=== PATIENT | male | born 1940 | race Caucasian/White ===

== ENCOUNTER 2018-04-21 23:58 | Emergency (ER) | payer OTHER, MEDICARE ==
--- OUTSIDE RECORDS SUMMARY | 2018-04-22 00:03 | XMS REPORT | Clinical Summary ---
:1940 Author Organization [facility] Address [address] [place] [address] Care Team Providers Name Role Phone Marcello Gary MD Primary Care Provider Allergies No Known Allergies Current Medications Prescription Sig. Disp. Refills Start End Date Status Date digOXIN (DIGOX) 125 Take 125 mcg by Active mcg tablet mouth daily. HYDROcodone-acetami Take 1 tablet by Active nophen (NORCO mouth every 6 10-325) 10-325 mg (six) hours as per tablet needed for moderate pain. tamsulosin (FLOMAX) Take 0.4 mg by Active 0.4 mg mouth nightly. capsule,extended release 24hr theophylline Take 100 mg by Active (THEODUR) 100 MG 12 mouth every 12 hr tablet (twelve) hours. tiotropium Place 1 capsule Active (SPIRIVA) 18 mcg into inhaler and per inhalation inhale once capsule daily. aspirin (ECOTRIN) Take 81 mg by Active 81 MG enteric mouth daily. coated tablet colchicine 0.6 mg Take 0.6 mg by Active tablet mouth daily as needed for muscle/joint pain (gout flare). FOLIC Take 1 tablet by Active ACID/MULTIVIT-MIN/L mouth daily. UTEIN (CENTRUM SILVER ORAL) albuterol (PROAIR Inhale 2 puffs Active HFA,PROVENTIL every 6 (six) HFA,VENTOLIN HFA) hours as needed 90 mcg/actuation for wheezing or inhaler shortness of breath. budesonide-formoter Inhale 2 puffs 2 Active ol (SYMBICORT) (two) times a 160-4.5 day. mcg/actuation inhaler ipratropium Take 500 mcg by Active (ATROVENT) 0.02 % nebulization 4 nebulizer solution (four) times a day. albuterol (ACCUNEB) Take 2.5 mg by Active 2.5 mg /3 mL (0.083 nebulization 4 %) nebulizer (four) times a solution day. rivaroxaban Take 20 mg by Active (XARELTO) 20 mg mouth. tablet pantoprazole Take 40 mg by Active (PROTONIX) 40 MG EC mouth 2 (two) tablet times a day. clopidogrel Take 75 mg by 01/14/20 Discontinued (PLAVIX) 75 mg mouth daily. 18 tablet furosemide (LASIX) Take 40 mg by 01/09/20 Discontinued 40 MG tablet mouth daily as 18 needed (for leg swelling). lisinopril Take 2.5 mg by 10/18/19 Discontinued (PRINIVIL,ZESTRIL) mouth 2 (two) 18 2.5 MG tablet times a day. metoprolol tartrate Take 25 mg by 10/15/19 Discontinued (LOPRESSOR) 25 MG mouth 2 (two) 18 tablet times a day. albuterol (ACCUNEB) Take 1 ampule by 11/07/19 Discontinued 1.25 mg/3 mL nebulization 18 nebulizer solution every 6 (six) hours as needed for wheezing or shortness of breath. B-complex with Take 1 tablet by 11/07/19 Discontinued vitamin C tablet mouth daily. 18 spironolactone Take 25 mg by 07/27/20 Discontinued (ALDACTONE) 25 MG mouth daily. 17 tablet arformoterol Take 15 mcg by 01/14/20 Discontinued (BROVANA) 15 mcg/2 nebulization 2 18 mL solution for (two) times a nebulization day. pantoprazole Take 1 tablet (40 06/15/20 Discontinued (PROTONIX) 40 MG EC mg total) by 6 17 tablet mouth every 12 (twelve) hours. sildenafil (VIAGRA) Take 25 mg by 11/07/19 Discontinued 25 MG tablet mouth as needed 18 for erectile dysfunction. ranitidine (ZANTAC) Take 150 mg by 06/15/20 Discontinued 150 MG tablet mouth 2 (two) 17 times a day. pantoprazole Take 1 tablet (40 180 tablet 3 10/13/19 Discontinued (PROTONIX) 40 MG EC mg total) by 7 18 tablet mouth every 12 (twelve) hours. polyethylene glycol Take 17 g by 30 packet 0 08/26/20 (MIRALAX) 17 gram mouth daily for 7 17 packet 30 days. pantoprazole Take 40 mg by 10/15/19 Discontinued (PROTONIX) 40 MG EC mouth every 12 18 tablet (twelve) hours. atorvastatin Take 1 tablet (80 30 tablet 0 11/14/19 (LIPITOR) 80 MG mg total) by 8 18 tablet mouth nightly for 30 days. predniSONE Take 2 tablets 6 tablet 0 10/19/19 (DELTASONE) 20 mg (40 mg total) by 8 18 tablet mouth daily for 3 doses. metoprolol tartrate Take 2 tablets 120 tablet 0 11/14/19 (LOPRESSOR) 25 mg (50 mg total) by 8 18 tablet mouth 2 (two) times a day for 30 days. pantoprazole Take 1 tablet (40 30 tablet 0 11/14/19 (PROTONIX) 40 MG EC mg total) by 8 18 tablet mouth daily for 30 days. azithromycin Take 2 tablets 6 tablet 0 10/19/19 (ZITHROMAX) 250 MG the first day, 8 18 tablet then 1 tablet daily for 4 days. cefpodoxime Take 2 tablets 24 tablet 0 10/24/19 (VANTIN) 200 MG (400 mg total) by 8 18 tablet mouth 2 (two) times a day for 6 days. predniSONE Take 3 tablets 6 tablet 0 10/21/19 (DELTASONE) 10 mg (30 mg total) by 8 18 tablet mouth daily for 2 days. predniSONE Take 2 tablets 6 tablet 0 10/24/19 (DELTASONE) 10 mg (20 mg total) by 8 18 tablet mouth daily for 3 days. predniSONE Take 1 tablet (10 3 tablet 0 10/27/19 (DELTASONE) 10 mg mg total) by 8 18 tablet mouth daily for 3 days. BUDESONIDE/FORMOTER Inhale 2 puffs 11/07/19 Discontinued OL FUMARATE daily. 18 (SYMBICORT INHL) predniSONE Take 10 mg by 11/11/19 Discontinued (DELTASONE) 10 mg mouth daily. 18 tablet nystatin Take 5 mL by 140 mL 0 11/18/19 (MYCOSTATIN) mouth 4 (four) 8 18 100,000 unit/mL times a day for 7 suspension days. Swish in mouth predniSONE Take 40mg QD x 3 30 tablet 0 11/23/19 (DELTASONE) 10 mg days, then 30mg 8 18 tablet QDx3 days, then 20 mg QDx3 days, then 10mg QDx3 days. levoFLOXacin Take 1 tablet 5 tablet 0 11/17/19 (LEVAQUIN) 500 MG (500 mg total) by 8 18 tablet mouth daily for 5 days. guaiFENesin Take 1 tablet 20 tablet 0 01/06/20 Discontinued (MUCINEX) 600 mg (600 mg total) by 8 18 tablet extended mouth 2 (two) release 12hr times a day for 10 days. predniSONE Prednisone 5 tablets for 3 days then 150 tablet 0 08/16 Discontinued (DELTASONE) 10 mg Prednisone 4 tables for 3 days then 8 18 tablet Prednisone 2 tables for 3 days then Prednisone 1 tablet for 3 da levoFLOXacin Take 1 tablet 1 tablet 0 12/18/19 (LEVAQUIN) 500 MG (500 mg total) by 8 18 tablet mouth daily for 1 day. mupirocin Apply topically 3 15 g 0 01/15/20 (BACTROBAN) 2 % (three) times a 8 18 ointment day for 30 days. lidocaine/maalox Take 35 mL by 175 mL 2 02/04/20 (GI COCKTAIL) 35 ml mouth every 6 8 18 suspension (six) hours as suspension needed (odynophagia) for up to 30 days. sucralfate Take 10 mL (1 g 1200 mL 1 01/14/20 Discontinued (CARAFATE) 100 total) by mouth 4 8 18 mg/mL suspension (four) times a day before meals and nightly for 30 days. simethicone Chew 1.5 tablets 180 tablet 0 01/14/20 Discontinued (MYLICON) 80 MG (120 mg total) 4 8 18 chewable tablet (four) times a day for 30 days. nystatin Take 5 mL by 475 mL 0 01/15/20 (MYCOSTATIN) mouth 4 (four) 8 18 100,000 unit/mL times a day for suspension 10 days. Swish in mouth benzonatate Take 1 capsule 60 capsule 0 01/14/20 Discontinued (TESSALON) 100 MG (100 mg total) by 8 18 capsule mouth every 6 (six) hours as needed for cough for up to 30 days. predniSONE 4 tabs po daily 30 tablet 0 01/17/20 (DELTASONE) 10 mg for 3 days, then 8 18 tablet 3 tabs po daily for 3 days, then 2 tabs po daily for 3 days, then 1 tab daily for 3 days, then stop famotidine (PEPCID) Take 1 tablet (40 30 tablet 0 01/14/20 Discontinued 40 MG tablet mg total) by 8 18 mouth nightly for 30 days. alum-mag Take 30 mL by 150 mL 1 01/14/20 Discontinued hydroxide-simeth mouth 4 (four) 8 18 (MAALOX PLUS) times a day as 200-200-20 mg/5 mL needed for suspension indigestion or heartburn for up to 30 days. valACYclovir Take 1 tablet 21 tablet 0 01/12/20 (VALTREX) 1000 MG (1,000 mg total) 8 18 tablet by mouth 3 (three) times a day for 7 days. furosemide (LASIX) Take 1 tablet (40 30 tablet 0 02/08/20 40 mg tablet mg total) by 8 18 mouth daily for 30 days. Active Problems Problem Noted Date Chest pain 01/08/2018 Dysphagia 12/23/2017 Overview: Added automatically from request for surgery [id number] COPD exacerbation 12/10/2017 Pacemaker 10/14/2017 Acute exacerbation of COPD with asthma 10/13/2017 COPD with acute exacerbation 10/13/2017 Generalized abdominal pain 04/21/2016 Acute on chronic diastolic congestive heart failure 04/06/2016 COPD with exacerbation 04/05/2016 COPD (chronic obstructive pulmonary disease) 03/22/2016 Carotid artery disease 03/22/2016 Hypertension 03/22/2016 Gout 03/22/2016 Anemia 03/22/2016 Asbestosis 03/22/2016 Alejo esophagus Diverticulosis Hiatal hernia Gall stone Encounters Date Type Specialty Care Team Description 02/05/20 Documentation Gastroenterology Aviva Patel MA 02/01/20 Office Visit Gastroenterology Patrick, 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); 18 John Dysphagia, unspecified type MD Sabine 02/01/20 Documentation Gastroenterology Aviva Patel MA 01/14/20 Hospital Radiology Patrick, Dysphagia, unspecified type 18 Encounter John Regalado MD 01/14/20 Office Visit Gastroenterology Patrick, Dysphagia, unspecified type 18 John (Primary Dx) MD Sabine 01/14/20 Documentation Gastroenterology Jorge 18 CALROS Dudley 01/08/20 Emergency Cardiology Gokal, Chest pain, unspecified type (Primary Dx); 18 - Hasan Exertional dyspnea 01/09/20 MD Zack 18 Marcelina Gutiérrez MD Bryant, Ronald, MD Neason, Chau L., MD 01/06/20 Patient Outreach Quality Aviva Phillip RN 12/29/19 Anesthesia Event Gastroenterology Aviva Priest MD 12/29/19 Procedure Pass Gastroenterology 18 12/29/19 Surgery Gastroenterology Kanchan, ESOPHAGOGASTRODUODENOSCOPY 18 Oxana Velásquez MD (EGD) 12/24/19 [facility], COPD exacerbation (Primary Dx); 18 - Encounter Medicine Lorenza Chest pain, unspecified type; 01/06/20 MD Yolanda Dyspnea on exertion; 18 Giveon, Dysphagia, unspecified type MD Jennyfer Mayberry Chau L., MD 12/11/19 [facility] Internal [facility], Acute respiratory distress ( Primary Dx); 18 - Encounter Medicine MD Juan COPD exacerbation 12/16/19 Gladys Hemphill MD 11/07/19 [facility], COPD with acute exacerbation ( Primary Dx); 18 - Encounter Medicine MD Kip Hypoxia; 11/11/19 Rigoberto Murphy Peripheral cyanosis Aviva Velásquez MD 10/15/19 Refill Internal Medicine Aviva Burnett MD 10/13/19 [facility], Acute exacerbation of COPD with asthma (Primary Dx); 18 - Encounter Medicine MD Kip COPD with acute exacerbation 10/18/19 Ramandeep, 18 MD Guy Priest Martina C., MD 10/10/19 Emergency Emergency Medicine Shaun Villar Chronic abdominal pain 18 MD Rick (Primary Dx) 10/09/19 Emergency Emergency Medicine Meño, Shortness of breath ( Primary Dx); 18 Aaron Chronic generalized abdominal pain; DO Jonathon Prerenal azotemia 07/27/20 Emergency Emergency Medicine Srinivasa, Chronic abdominal pain ( Primary Dx); 17 Kwabena Martinez DO Intra-abdominal adhesions 06/15/20 Office Visit Gastroenterology Patrick, Hiatal hernia (Primary Dx); 17 John 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; MD Sabine Generalized abdominal pain; Calculus of gallbladder without cholecystitis without obstruction; Diverticulosis of intestine without bleeding, unspecified intestinal tract location after 04/21/2017 Family History Medical History Relation Name Comments Prostate cancer Brother Relation Name Status Comments Brother Alive Father Mother Social History Tobacco Use Types Packs/Day Years Used Date Former Smoker Quit: 10/09/2002 Smokeless Tobacco: Never Used Tobacco Cessation: Counseling Given: No Comments: quit 14 yrs ago Alcohol Use Drinks/Week oz/Week Comments Yes 1-2 Standard drinks or equivalent 0.6 - 1.2 margaritas Sex Assigned at Date Recorded Not on file Last Filed Vital Signs Vital Sign Reading Time Taken Blood Pressure 122/58 01/31/2018 12:44 PM CDT Pulse 98 01/31/2018 12:44 PM CDT Temperature 36.9 C (98.5 F) 01/31/2018 12:44 PM CDT Respiratory Rate 18 01/08/2018 9:10 AM CDT Oxygen Saturation 97% 01/08/2018 9:03 AM CDT Inhaled Oxygen Concentration - - Weight 68.5 kg (151 lb) 01/31/2018 12:44 PM CDT Height 172.7 cm (5' 8") 01/08/2018 2:35 AM CDT Body Mass Index 22.96 01/31/2018 12:44 PM CDT Plan of Treatment Health Maintenance Due Date Last Done Comments SHINGRIX VACCINE (#1) 12/17/1991 ZOSTER VACCINE 2001 PNEUMOCOCCAL POLYSACCHARIDE VACCINE AGE 65 AND OVER 2006 PNEUMOCOCCAL-13 2006 INFLUENZA VACCINE 04/27/2018 Implants Implanted Type Area [employer]stone Fitter Device Expiration Date Model / Identifier Serial / Lot Pacemaker Pacemaker Pacemaker Nish Right Hip Pacemaker Procedures Procedure Name Priority Date/Time Associated Comments Diagnosis FL ESOPHAGRAM COMPLETE Routine 01/13/2018 Dysphagia, Results for 3:47 PM CDT unspecified type this procedure are in the results section. MANUAL DIFFERENTIAL Routine 01/08/2018 Results for 5:05 AM CDT this procedure are in the results section. ESTIMATED GFR Routine 01/08/2018 Results for 5:05 AM CDT this procedure are in the results section. BASIC METABOLIC PANEL Routine 01/08/2018 Results for 5:05 AM CDT this procedure are in the results section. CBC WITH PLATELET AND Routine 01/08/2018 Results for DIFFERENTIAL 5:05 AM CDT this procedure are in the results section. TROPONIN Timed 01/08/2018 Results for 5:05 AM CDT this procedure are in the results section. URINALYSIS SCREEN AND STAT 01/07/2018 Results for MICROSCOPY, WITH REFLEX TO 10:05 PM CDT this procedure CULTURE are in the results section. URINE CULTURE STAT 01/07/2018 Results for 10:04 PM CDT this procedure are in the results section. ECG 12-LEAD STAT 01/07/2018 Results for 9:33 PM CDT this procedure are in the results section. MANUAL DIFFERENTIAL STAT 01/07/2018 Results for 9:24 PM CDT this procedure are in the results section. ESTIMATED GFR STAT 01/07/2018 Results for 9:24 PM CDT this procedure are in the results section. PARTIAL THROMBOPLASTIN TIME STAT 01/07/2018 Results for (PTT) 9:24 PM CDT this procedure are in the results section. PROTHROMBIN TIME WITH INR STAT 01/07/2018 Results for 9:24 PM CDT this procedure are in the results section. B NATRIURETIC PEPTIDE STAT 01/07/2018 Results for 9:24 PM CDT this procedure are in the results section. TROPONIN STAT 01/07/2018 Results for 9:24 PM CDT this procedure are in the results section. COMPREHENSIVE METABOLIC PANEL STAT 01/07/2018 Results for 9:24 PM CDT this procedure are in the results section. CBC WITH PLATELET AND STAT 01/07/2018 Results for DIFFERENTIAL 9:24 PM CDT this procedure are in the results section. XR CHEST 2 VW STAT 01/07/2018 Results for 9:05 PM CDT this procedure are in the results section. THEOPHYLLINE LEVEL Routine 01/04/2018 Results for 3:50 PM CDT this procedure are in the results section. MANUAL DIFFERENTIAL Routine 01/03/2018 Results for 5:00 AM CDT this procedure are in the results section. ESTIMATED GFR Routine 01/03/2018 Results for 5:00 AM CDT this procedure are in the results section. CBC WITH PLATELET AND Routine 01/03/2018 Results for DIFFERENTIAL 5:00 AM CDT this procedure are in the results section. BASIC METABOLIC PANEL Routine 01/03/2018 Results for 5:00 AM CDT this procedure are in the results section. MANUAL DIFFERENTIAL Routine 01/02/2018 Results for 6:48 AM CDT this procedure are in the results section. CBC WITH PLATELET AND Routine 01/02/2018 Results for DIFFERENTIAL 6:48 AM CDT this procedure are in the results section. ESTIMATED GFR Routine 01/02/2018 Results for 4:00 AM CDT this procedure are in the results section. BASIC METABOLIC PANEL Routine 01/02/2018 Results for 4:00 AM CDT this procedure are in the results section. ESTIMATED GFR Routine 01/01/2018 Results for 1:30 AM CDT this procedure are in the results section. BASIC METABOLIC PANEL Routine 01/01/2018 Results for 1:30 AM CDT this procedure are in the results section. MANUAL DIFFERENTIAL Routine 01/01/2018 Results for 1:20 AM CDT this procedure are in the results section. CBC WITH PLATELET AND Routine 01/01/2018 Results for DIFFERENTIAL 1:20 AM CDT this procedure are in the results section. MANUAL DIFFERENTIAL Routine 12/31/2017 Results for 7:08 AM CDT this procedure are in the results section. ESTIMATED GFR Routine 12/31/2017 Results for 7:08 AM CDT this procedure are in the results section. CBC WITH PLATELET AND Routine 12/31/2017 Results for DIFFERENTIAL 7:08 AM CDT this procedure are in the results section. BASIC METABOLIC PANEL Routine 12/31/2017 Results for 7:08 AM CDT this procedure are in the results section. HC COMPLETE BLD COUNT W/AUTO Routine 12/30/2017 Results for DIFF 5:00 AM CDT this procedure are in the results section. ESTIMATED GFR Routine 12/30/2017 Results for 4:00 AM CDT this procedure are in the results section. IGG SUBCLASSES Routine 12/30/2017 Results for 4:00 AM CDT this procedure are in the results section. BASIC METABOLIC PANEL Routine 12/30/2017 Results for 4:00 AM CDT this procedure are in the results section. HC COMPLETE BLD COUNT W/AUTO Routine 12/29/2017 Results for DIFF 4:30 AM CDT this procedure are in the results section. ESTIMATED GFR Routine 12/29/2017 Results for 4:00 AM CDT this procedure are in the results section. HEPARIN PF4 ANTIBODY (IGG) Routine 12/29/2017 Results for 4:00 AM CDT this procedure are in the results section. BASIC METABOLIC PANEL Routine 12/29/2017 Results for 4:00 AM CDT this procedure are in the results section. ESOPHAGOGASTRODUODENOSCOPY (EGD) 12/28/2017 Dysphagia, 3:00 PM CDT unspecified type SURGICAL PATHOLOGY REQUEST Routine 12/28/2017 Results for 9:53 AM CDT this procedure are in the results section. HC COMPLETE BLD COUNT W/AUTO Routine 12/28/2017 Results for DIFF 4:30 AM CDT this procedure are in the results section. ESTIMATED GFR Routine 12/28/2017 Results for 4:00 AM CDT this procedure are in the results section. BASIC METABOLIC PANEL Routine 12/28/2017 Results for 4:00 AM CDT this procedure are in the results section. HC COMPLETE BLD COUNT W/AUTO Routine 12/27/2017 Results for DIFF 6:30 AM CDT this procedure are in the results section. ESTIMATED GFR Routine 12/27/2017 Results for 4:00 AM CDT this procedure are in the results section. BASIC METABOLIC PANEL Routine 12/27/2017 Results for 4:00 AM CDT this procedure are in the results section. HC COMPLETE BLD COUNT W/AUTO Routine 12/26/2017 Results for DIFF 7:50 AM CDT this procedure are in the results section. ESTIMATED GFR Routine 12/26/2017 Results for 4:00 AM CDT this procedure are in the results section. BASIC METABOLIC PANEL Routine 12/26/2017 Results for 4:00 AM CDT this procedure are in the results section. CT SOFT TISSUE NECK WO CONTRAST STAT 12/24/2017 Results for 6:19 AM CDT this procedure are in the results section. CT CHEST WO CONTRAST Routine 12/24/2017 Results for 6:16 AM CDT this procedure are in the results section. MANUAL DIFFERENTIAL Routine 12/24/2017 Results for 5:00 AM CDT this procedure are in the results section. CBC WITH PLATELET AND Routine 12/24/2017 Results for DIFFERENTIAL 5:00 AM CDT this procedure are in the results section. THEOPHYLLINE LEVEL Routine 12/24/2017 Results for 4:00 AM CDT this procedure are in the results section. TROPONIN Routine 12/24/2017 Results for 4:00 AM CDT this procedure are in the results section. ESTIMATED GFR Routine 12/24/2017 Results for 4:00 AM CDT this procedure are in the results section. BASIC METABOLIC PANEL Routine 12/24/2017 Results for 4:00 AM CDT this procedure are in the results section. RESPIRATORY PATHOGEN PANEL Routine 12/24/2017 Results for 12:24 AM CDT this procedure are in the results section. ARTERIAL BLOOD GAS STAT 12/23/2017 Results for 8:11 PM CDT this procedure are in the results section. ECG ED PRELIMINARY Routine 12/23/2017 Results for INTERPRETATION 7:28 PM CDT this procedure are in the results section. MANUAL DIFFERENTIAL STAT 12/23/2017 Results for 6:15 PM CDT this procedure are in the results section. ESTIMATED GFR STAT 12/23/2017 Results for 6:15 PM CDT this procedure are in the results section. B NATRIURETIC PEPTIDE STAT 12/23/2017 Results for 6:15 PM CDT this procedure are in the results section. TROPONIN STAT 12/23/2017 Results for 6:15 PM CDT this procedure are in the results section. COMPREHENSIVE METABOLIC PANEL STAT 12/23/2017 Results for 6:15 PM CDT this procedure are in the results section. CBC WITH PLATELET AND STAT 12/23/2017 Results for DIFFERENTIAL 6:15 PM CDT this procedure are in the results section. XR CHEST 2 VW STAT 12/23/2017 Results for 5:47 PM CDT this procedure are in the results section. ECG 12-LEAD STAT 12/23/2017 Results for 5:36 PM CDT this procedure are in the results section. ESTIMATED GFR Routine 12/13/2017 Results for 4:30 AM CDT this procedure are in the results section. MAGNESIUM LEVEL Routine 12/13/2017 Results for 4:30 AM CDT this procedure are in the results section. BASIC METABOLIC PANEL Routine 12/13/2017 Results for 4:30 AM CDT this procedure are in the results section. LACTIC ACID LEVEL Routine 12/12/2017 Results for 1:43 PM CDT this procedure are in the results section. ESTIMATED GFR Routine 12/12/2017 Results for 4:00 AM CDT this procedure are in the results section. BASIC METABOLIC PANEL Routine 12/12/2017 Results for 4:00 AM CDT this procedure are in the results section. MANUAL DIFFERENTIAL Routine 12/11/2017 Results for 4:55 AM CDT this procedure are in the results section. ESTIMATED GFR Routine 12/11/2017 Results for 4:55 AM CDT this procedure are in the results section. LACTIC ACID LEVEL Routine 12/11/2017 Results for 4:55 AM CDT this procedure are in the results section. BASIC METABOLIC PANEL Routine 12/11/2017 Results for 4:55 AM CDT this procedure are in the results section. CBC WITH PLATELET AND Routine 12/11/2017 Results for DIFFERENTIAL 4:55 AM CDT this procedure are in the results section. TROPONIN Timed 12/11/2017 Results for 4:55 AM CDT this procedure are in the results section. LACTIC ACID LEVEL, SEPSIS - NOW Timed 12/10/2017 Results for AND REPEAT 2X EVERY 3 HOURS 9:28 PM CDT this procedure are in the results section. CT ANGIOGRAM PE CHEST STAT 12/10/2017 Results for 7:31 PM CDT this procedure are in the results section. TROPONIN Timed 12/10/2017 Results for 6:20 PM CDT this procedure are in the results section. LACTIC ACID LEVEL, SEPSIS - NOW Timed 12/10/2017 Results for AND REPEAT 2X EVERY 3 HOURS 6:20 PM CDT this procedure are in the results section. XR CHEST 1 VW PORTABLE STAT 12/10/2017 Results for 4:38 PM CDT this procedure are in the results section. XR ABDOMEN 1 VW STAT 12/10/2017 Results for 4:38 PM CDT this procedure are in the results section. RESPIRATORY PATHOGEN PANEL Routine 12/10/2017 Results for 3:55 PM CDT this procedure are in the results section. MANUAL DIFFERENTIAL STAT 12/10/2017 Results for 3:40 PM CDT this procedure are in the results section. ESTIMATED GFR STAT 12/10/2017 Results for 3:40 PM CDT this procedure are in the results section. PARTIAL THROMBOPLASTIN TIME STAT 12/10/2017 Results for (PTT) 3:40 PM CDT this procedure are in the results section. PROTHROMBIN TIME WITH INR STAT 12/10/2017 Results for 3:40 PM CDT this procedure are in the results section. B NATRIURETIC PEPTIDE STAT 12/10/2017 Results for 3:40 PM CDT this procedure are in the results section. TROPONIN STAT 12/10/2017 Results for 3:40 PM CDT this procedure are in the results section. LACTIC ACID LEVEL, SEPSIS - NOW STAT 12/10/2017 Results for AND REPEAT 2X EVERY 3 HOURS 3:40 PM CDT this procedure are in the results section. COMPREHENSIVE METABOLIC PANEL STAT 12/10/2017 Results for 3:40 PM CDT this procedure are in the results section. CBC WITH PLATELET AND STAT 12/10/2017 Results for DIFFERENTIAL 3:40 PM CDT this procedure are in the results section. BLOOD CULTURE, AEROBIC & Routine 12/10/2017 Results for ANAEROBIC 3:40 PM CDT this procedure are in the results section. BLOOD CULTURE, AEROBIC & Routine 12/10/2017 Results for ANAEROBIC 3:35 PM CDT this procedure are in the results section. ECG 12-LEAD STAT 12/10/2017 Results for 3:16 PM CDT this procedure are in the results section. POC GLUCOSE Routine 11/09/2017 Results for 8:28 AM [employer]ING [employer]ANT this procedure are in the results section. ECG 12-LEAD STAT 11/08/2017 Results for 10:32 AM [employer]ANT this procedure are in the results section. CT ANGIOGRAM PE CHEST STAT 11/07/2017 Results for 10:29 PM [employer]ANT this procedure are in the results section. ARTERIAL BLOOD GAS STAT 11/07/2017 Results for 7:20 PM [employer] this procedure are in the results section. ECG ED PRELIMINARY Routine 11/07/2017 Results for INTERPRETATION 6:00 PM [employer] this procedure are in the results section. IN CRITICAL CARE, E/M 30-74 Routine 11/07/2017 Results for MINUTES 6:00 PM [employer] this procedure are in the results section. ESTIMATED GFR Routine 11/07/2017 Results for 4:25 PM [employer] this procedure are in the results section. B NATRIURETIC PEPTIDE Routine 11/07/2017 Results for 4:25 PM [employer] this procedure are in the results section. COMPREHENSIVE METABOLIC PANEL Routine 11/07/2017 Results for 4:25 PM [employer] this procedure are in the results section. HC COMPLETE BLD COUNT W/AUTO Routine 11/07/2017 Results for DIFF 4:25 PM [employer] this procedure are in the results section. BLOOD CULTURE, AEROBIC & Routine 11/07/2017 Results for ANAEROBIC 4:25 PM [employer] this procedure are in the results section. BLOOD CULTURE, AEROBIC & Routine 11/07/2017 Results for ANAEROBIC 4:25 PM [employer] this procedure are in the results section. XR CHEST 2 VW STAT 11/07/2017 Results for 3:16 PM [employer] this procedure are in the results section. ECG 12-LEAD STAT 11/07/2017 Results for 3:12 PM [employer] this procedure are in the results section. MANUAL DIFFERENTIAL Routine 10/18/2017 Results for 5:00 AM [employer] this procedure are in the results section. CBC WITH PLATELET AND Routine 10/18/2017 Results for DIFFERENTIAL 5:00 AM [employer] this procedure are in the results section. ESTIMATED GFR Routine 10/18/2017 Results for 4:00 AM [employer] this procedure are in the results section. BASIC METABOLIC PANEL Routine 10/18/2017 Results for 4:00 AM [employer] this procedure are in the results section. ESTIMATED GFR Routine 10/17/2017 Results for 5:17 AM [employer] this procedure are in the results section. HC COMPLETE BLD COUNT W/AUTO Routine 10/17/2017 Results for DIFF 5:17 AM [employer] this procedure are in the results section. BASIC METABOLIC PANEL Routine 10/17/2017 Results for 5:17 AM [employer] this procedure are in the results section. ESTIMATED GFR Routine 10/16/2017 Results for 5:00 AM [employer] this procedure are in the results section. BASIC METABOLIC PANEL Routine 10/16/2017 Results for 5:00 AM [employer] this procedure are in the results section. HC COMPLETE BLD COUNT W/AUTO Routine 10/16/2017 Results for DIFF 5:00 AM [employer] this procedure are in the results section. IN CRITICAL CARE, E/M 30-74 Routine 10/15/2017 Results for MINUTES 12:01 PM [employer] this procedure are in the results section. ESTIMATED GFR Routine 10/15/2017 Results for 4:50 AM [employer] this procedure are in the results section. BASIC METABOLIC PANEL Routine 10/15/2017 Results for 4:50 AM [employer] this procedure are in the results section. HC COMPLETE BLD COUNT W/AUTO Routine 10/15/2017 Results for DIFF 4:50 AM [employer] this procedure are in the results section. XR CHEST 2 VW Routine 10/14/2017 Results for 5:15 PM [employer] this procedure are in the results section. ESTIMATED GFR Timed 10/14/2017 Results for 4:00 PM [employer] this procedure are in the results section. BASIC METABOLIC PANEL Timed 10/14/2017 Results for 4:00 PM [employer] this procedure are in the results section. ECG 12-LEAD STAT 10/14/2017 Results for 10:37 AM [employer] this procedure are in the results section. POC GLUCOSE Routine 10/14/2017 Results for 9:39 AM [employer] this procedure are in the results section. ECHOCARDIOGRAM 2D COMPLETE W Routine 10/14/2017 Results for MMODE SPECTRAL COLOR DOPPLER 9:12 AM [employer] this procedure ([id number]) are in the results section. HEMOGLOBIN A1C Routine 10/14/2017 Results for 5:00 AM [employer] this procedure are in the results section. ESTIMATED GFR Routine 10/14/2017 Results for 5:00 AM [employer] this procedure are in the results section. T4, FREE Routine 10/14/2017 Results for 5:00 AM [employer] this procedure are in the results section. THYROID STIMULATING HORMONE Routine 10/14/2017 Results for 5:00 AM [employer] this procedure are in the results section. LIPID PANEL Routine 10/14/2017 Results for 5:00 AM [employer] this procedure are in the results section. PHOSPHORUS LEVEL Routine 10/14/2017 Results for 5:00 AM [employer] this procedure are in the results section. MAGNESIUM LEVEL Routine 10/14/2017 Results for 5:00 AM [employer] this procedure are in the results section. HEPATIC FUNCTION PANEL Routine 10/14/2017 Results for 5:00 AM [employer] this procedure are in the results section. CREATINE KINASE, TOTAL (CPK) Routine 10/14/2017 Results for 5:00 AM [employer] this procedure are in the results section. BASIC METABOLIC PANEL Routine 10/14/2017 Results for 5:00 AM [employer] this procedure are in the results section. HC COMPLETE BLD COUNT W/AUTO Routine 10/14/2017 Results for DIFF 5:00 AM [employer] this procedure are in the results section. RESPIRATORY PATHOGEN PANEL Routine 10/14/2017 Results for 12:00 AM [employer] this procedure are in the results section. XR ABDOMEN 1 VW PORTABLE Routine 10/13/2017 Results for 8:31 PM [employer] this procedure are in the results section. DIGOXIN LEVEL Timed 10/13/2017 Results for 8:23 PM [employer] this procedure are in the results section. TROPONIN Timed 10/13/2017 Results for 8:23 PM [employer] this procedure are in the results section. RESPIRATORY PATHOGEN PANEL Routine 10/13/2017 Results for 7:20 PM [employer] this procedure are in the results section. ARTERIAL BLOOD GAS Routine 10/13/2017 Results for 6:40 PM [employer] this procedure are in the results section. XR CHEST 1 VW PORTABLE STAT 10/13/2017 Results for 6:01 PM [employer] this procedure are in the results section. ECG 12-LEAD STAT 10/13/2017 Results for 4:55 PM [employer] this procedure are in the results section. BLOOD CULTURE, AEROBIC & Routine 10/13/2017 Results for ANAEROBIC 4:50 PM [employer] this procedure are in the results section. ESTIMATED GFR STAT 10/13/2017 Results for 4:45 PM [employer] this procedure are in the results section. B NATRIURETIC PEPTIDE STAT 10/13/2017 Results for 4:45 PM [employer] this procedure are in the results section. TROPONIN STAT 10/13/2017 Results for 4:45 PM [employer] this procedure are in the results section. COMPREHENSIVE METABOLIC PANEL STAT 10/13/2017 Results for 4:45 PM [employer] this procedure are in the results section. HC COMPLETE BLD COUNT W/AUTO STAT 10/13/2017 Results for DIFF 4:45 PM [employer] this procedure are in the results section. CT ABDOMEN PELVIS WO CONTRAST STAT 10/10/2017 Results for 5:22 PM [employer] this procedure are in the results section. INFLUENZA ANTIGEN Routine 10/10/2017 Results for 3:48 PM [employer] this procedure are in the results section. MANUAL DIFFERENTIAL STAT 10/10/2017 Results for 3:44 PM [employer] this procedure are in the results section. ESTIMATED GFR STAT 10/10/2017 Results for 3:44 PM [employer] this procedure are in the results section. COMPREHENSIVE METABOLIC PANEL STAT 10/10/2017 Results for 3:44 PM [employer] this procedure are in the results section. CBC WITH PLATELET AND STAT 10/10/2017 DIFFERENTIAL 3:44 PM [employer] ECG ED PRELIMINARY Routine 10/09/2017 Results for INTERPRETATION 10:56 PM [employer] this procedure are in the results section. ECG 12-LEAD STAT 10/09/2017 Results for 9:39 PM [employer] this procedure are in the results section. MANUAL DIFFERENTIAL STAT 10/09/2017 Results for 9:26 PM [employer] this procedure are in the results section. ESTIMATED GFR STAT 10/09/2017 Results for 9:26 PM [employer] this procedure are in the results section. PROTHROMBIN TIME WITH INR, STAT 10/09/2017 Results for I-STAT 9:26 PM [employer] this procedure are in the results section. CBC WITH PLATELET AND STAT 10/09/2017 Results for DIFFERENTIAL 9:26 PM [employer] this procedure are in the results section. B NATRIURETIC PEP, I-STAT STAT 10/09/2017 Results for 9:26 PM [employer] this procedure are in the results section. TROPONIN, I-STAT STAT 10/09/2017 Results for 9:26 PM [employer] this procedure are in the results section. CREATINE KINASE, TOTAL (CPK) STAT 10/09/2017 Results for 9:26 PM [employer] this procedure are in the results section. LACTIC ACID, I-STAT STAT 10/09/2017 Results for 9:26 PM [employer] this procedure are in the results section. COMPREHENSIVE METABOLIC PANEL STAT 10/09/2017 Results for 9:26 PM [employer] this procedure are in the results section. XR CHEST 1 VW PORTABLE STAT 10/09/2017 Results for 9:18 PM [employer] this procedure are in the results section. CT ABDOMEN PELVIS WO CONTRAST STAT 07/27/2017 Results for 9:39 PM CDT this procedure are in the results section. after 04/21/2017 Results [place] Esophagram Complete (01/13/2018 3:47 PM) Narrative Performed At EXAMINATION:[place] ESOPHAGRAM COMPLETE [facility] CLINICAL HISTORY:R13.10 Dysphagiaunspecified, CHOKING SENSATION, DIFFICULTY SWALLOWING COMPARISON:None. TECHNIQUE:Esophagram was performed with effervescent granules and barium. FLUOROSCOPIC TIME:1.8 minutes IMAGES:31 FINDINGS: 1.Swallow:Swallowing mechanism was normal. Esophagus was distensible. The mucosa and motility were within normal limits. 2.Gastroesophageal junction:No evidence of hiatal hernia. No reflux. 3.Visualized portions of the stomach and proximal small bowel unremarkable. IMPRESSION: 1.Unremarkable esophagram. [facility]-[id number] Procedure Note Interface, Radiology Results Incoming - 01/13/2018 3:55 PM CDT EXAMINATION: [place] ESOPHAGRAM COMPLETE CLINICAL HISTORY: R13.10 Dysphagia unspecified, CHOKING SENSATION, DIFFICULTY SWALLOWING COMPARISON: None. TECHNIQUE: Esophagram was performed with effervescent granules and barium. FLUOROSCOPIC TIME: 1.8 minutes IMAGES: 31 FINDINGS: 1. Swallow: Swallowing mechanism was normal. Esophagus was distensible. The mucosa and motility were within normal limits. 2. Gastroesophageal junction: No evidence of hiatal hernia. No reflux. 3. Visualized portions of the stomach and proximal small bowel unremarkable. IMPRESSION: 1. Unremarkable esophagram. [id number] Performing Organization Address City/State/Zipcode Phone Number [facility] [address] [place] [phone] Estimated GFR (01/08/2018 5:05 AM)Only the most recent of27 resultswithin the time period is included. GFR Non Af Amer 73 mL/min/1.73 m2 [facility] DEPARTMENT OF PATHOLOGY AND GENOMIC MEDICINE GFR Af Amer 88 mL/min/1.73 m2 [facility] DEPARTMENT OF Comment: PATHOLOGY AND GENOMIC Chronic kidney disease: <60 mL/min/1.73m2 MEDICINE Kidney failure: <15 mL/min/1.73m2 The estimated GFR is calculated from the IDMS-traceable Modification of Diet in Renal Disease Equation. The accuracy of the calculation is poor when the creatinine is normal. Calculated values >90 mL/min/1.73m2 are not reported. This equation has not been validated in children (<18 years), women, the elderly (>70 years), or ethnic groups other than Caucasians and Americans. Specimen Plasma specimen Performing Organization Address City/[facility] Phone Number [facility] OF PATHOLOGY AND [address] [place] [address] MEDICINE Troponin (01/08/2018 5:05 AM)Only the most recent of9 resultswithin the time period is included. Troponin <0.30 0.00 - 0.30 ng/mL [facility] DEPARTMENT OF PATHOLOGY Comment: AND GENOMIC MEDICINE 0.30 - 1.49 ng/mlMay indicate increased risk of acute coronary syndrome. >=1.5 ng/mlConsistent with acute myocardial infarction. The diagnostic value of a single normal or non-diagnostic result is questionable.Serial samples at 2-6 hour intervals are required to rule out acute myocardial injury. Specimen Plasma specimen Performing Organization Address City/[facility]code Phone Number [facility] DEPARTMENT OF PATHOLOGY AND [address] [place] [phone] GENOMIC MEDICINE Manual differential (01/08/2018 5:05 AM)Only the most recent of13 resultswithin the time period is included. Manual differential PERFORMED [facility] DEPARTMENT OF PATHOLOGY AND GENOMIC MEDICINE Neutrophils 84.0 (H) 39.0 - 69.0 % [facility] DEPARTMENT OF PATHOLOGY AND GENOMIC MEDICINE Lymphocytes 9.0 (L) 25.0 - 45.0 % [facility] DEPARTMENT OF PATHOLOGY AND GENOMIC MEDICINE Monocytes 3.0 0.0 - 10.0 % [facility] DEPARTMENT OF PATHOLOGY AND GENOMIC MEDICINE Eosinophils 0.0 0.0 - 5.0 % [facility] DEPARTMENT OF PATHOLOGY AND GENOMIC MEDICINE Basophils 0.0 0.0 - 1.0 % [facility] DEPARTMENT OF PATHOLOGY AND GENOMIC MEDICINE Metamyelocytes 1 % [facility] DEPARTMENT OF PATHOLOGY AND GENOMIC MEDICINE Myelocytes 3 % [facility] DEPARTMENT OF PATHOLOGY AND GENOMIC MEDICINE Promyelocytes 0 % [facility] DEPARTMENT OF PATHOLOGY AND GENOMIC MEDICINE Platelet slide review Decreased (A) [facility] DEPARTMENT OF PATHOLOGY AND GENOMIC MEDICINE Anisocytosis Moderate [facility] DEPARTMENT OF PATHOLOGY AND GENOMIC MEDICINE Performing Organization Address City/State/Zipcode Phone Number [facility] DEPARTMENT OF PATHOLOGY AND [address] [place] [phone] GENOMIC [place] CBC with platelet and differential (01/08/2018 5:05 AM)Only the most recent of23 resultswithin the time period is included. WBC 9.20 4.50 - 11.00 k/uL [facility] DEPARTMENT OF PATHOLOGY AND GENOMIC MEDICINE RBC 3.66 (L) 4.40 - 6.00 m/uL [facility] DEPARTMENT OF PATHOLOGY AND GENOMIC MEDICINE HGB 10.7 (L) 14.0 - 18.0 g/dL [facility] DEPARTMENT OF PATHOLOGY AND GENOMIC MEDICINE HCT 34.1 (L) 41.0 - 51.0 % [facility] DEPARTMENT OF PATHOLOGY AND GENOMIC MEDICINE MCV 93.2 82.0 - 100.0 fL [facility] DEPARTMENT OF PATHOLOGY AND GENOMIC MEDICINE MCH 29.2 27.0 - 34.0 pg [facility] DEPARTMENT OF PATHOLOGY AND GENOMIC MEDICINE MCHC 31.4 31.0 - 37.0 g/dL [facility] DEPARTMENT OF PATHOLOGY AND GENOMIC MEDICINE RDW - SD 53.1 37.0 - 55.0 fL [facility] DEPARTMENT OF PATHOLOGY AND GENOMIC MEDICINE MPV 10.6 8.8 - 13.2 fL [facility] DEPARTMENT OF PATHOLOGY AND GENOMIC MEDICINE Platelet count 111 (L) 150 - 400 k/uL [facility] DEPARTMENT OF PATHOLOGY AND GENOMIC MEDICINE Nucleated RBC 0.20 /100 WBC [facility] DEPARTMENT OF PATHOLOGY AND GENOMIC MEDICINE Neutrophils 84.0 (H) 39.0 - 69.0 % [facility] DEPARTMENT OF PATHOLOGY AND GENOMIC MEDICINE Lymphocytes 9.0 (L) 25.0 - 45.0 % [facility] DEPARTMENT OF PATHOLOGY AND GENOMIC MEDICINE Monocytes 3.0 0.0 - 10.0 % [facility] DEPARTMENT OF PATHOLOGY AND GENOMIC MEDICINE Eosinophils 0.0 0.0 - 5.0 % [facility] DEPARTMENT OF PATHOLOGY AND GENOMIC MEDICINE Basophils 0.0 0.0 - 1.0 % [facility] DEPARTMENT OF PATHOLOGY AND GENOMIC MEDICINE Specimen Blood Performing Organization Address City/[facility]/Zipcode Phone Number [facility] PATHOLOGY AND [address] [place] [address] [facility] Basic metabolic panel (01/08/2018 5:05 AM)Only the most recent of20 resultswithin the time period is included. Sodium 138 135 - 148 mEq/L [facility] DEPARTMENT OF PATHOLOGY AND GENOMIC MEDICINE Potassium 3.3 (L) 3.5 - 5.0 mEq/L [facility] DEPARTMENT OF PATHOLOGY AND GENOMIC MEDICINE Chloride 91 (L) 98 - 112 mEq/L [facility] DEPARTMENT OF PATHOLOGY AND GENOMIC MEDICINE CO2 34 (H) 24 - 31 mEq/L [facility] DEPARTMENT OF PATHOLOGY AND GENOMIC MEDICINE Anion gap 13 7 - 15 mEq/L [facility] DEPARTMENT OF PATHOLOGY Comment: AND [facility] Starting from December , anion gap calculation no longer incorporates potassium. Please note the change. BUN 25 (H) 8 - 23 mg/dL [facility] DEPARTMENT OF PATHOLOGY AND GENOMIC MEDICINE Creatinine 1.0 0.7 - 1.2 mg/dL [facility] DEPARTMENT OF PATHOLOGY AND GENOMIC MEDICINE Glucose 100 (H) 65 - 99 mg/dL [facility] DEPARTMENT OF PATHOLOGY AND GENOMIC MEDICINE Calcium 8.5 (L) 8.8 - 10.2 mg/dL [facility] DEPARTMENT OF PATHOLOGY AND GENOMIC MEDICINE Specimen Plasma specimen Performing Organization Address City/[facility]code Phone Number [facility] PATHOLOGY AND [address] [place] [address] [facility] Urinalysis screen and microscopy, with reflex to culture (01/07/2018 10:05 PM) Specimen site Clean catch [facility] DEPARTMENT OF PATHOLOGY AND GENOMIC MEDICINE Color, UA Awilda [facility] DEPARTMENT OF PATHOLOGY AND GENOMIC MEDICINE Appearance, UA Clear [facility] DEPARTMENT OF PATHOLOGY AND GENOMIC MEDICINE Specific gravity, UA 1.024 1.001 - 1.035 [facility] DEPARTMENT OF PATHOLOGY AND GENOMIC MEDICINE pH, UA 5.0 5.0 - 8.5 [facility] DEPARTMENT OF PATHOLOGY AND GENOMIC MEDICINE Protein, UA 2+ (A) Negative [facility] DEPARTMENT OF PATHOLOGY AND GENOMIC MEDICINE Glucose, UA Negative Negative [facility] DEPARTMENT OF PATHOLOGY AND GENOMIC MEDICINE Ketones, UA Negative Negative [facility] DEPARTMENT OF PATHOLOGY AND GENOMIC MEDICINE Bilirubin, UA Negative Negative [facility] DEPARTMENT OF PATHOLOGY AND GENOMIC MEDICINE Blood, UA Negative Negative [facility] DEPARTMENT OF PATHOLOGY AND GENOMIC MEDICINE Nitrite, UA Negative Negative [facility] DEPARTMENT OF PATHOLOGY AND GENOMIC MEDICINE Urobilinogen, UA <2.0 <2.0 [facility] DEPARTMENT OF PATHOLOGY AND GENOMIC MEDICINE Leukocyte esterase, UA Negative Negative [facility] DEPARTMENT OF PATHOLOGY AND GENOMIC MEDICINE WBC, UA 1 0 - 1 /HPF [facility] DEPARTMENT OF PATHOLOGY AND GENOMIC MEDICINE RBC, UA 3 0 - 5 /HPF [facility] DEPARTMENT OF PATHOLOGY AND GENOMIC MEDICINE Bacteria, UA Few None seen [facility] DEPARTMENT OF PATHOLOGY AND GENOMIC MEDICINE Yeast, UA None seen [facility] DEPARTMENT OF PATHOLOGY AND GENOMIC MEDICINE Yeast with pseudohyphae, UA None seen [facility] DEPARTMENT OF PATHOLOGY AND GENOMIC MEDICINE Sperm, UA Few (A) [facility] DEPARTMENT OF PATHOLOGY AND GENOMIC MEDICINE Hyaline casts, UA 7 /LPF [facility] DEPARTMENT OF PATHOLOGY AND GENOMIC MEDICINE Specimen Urine Performing Organization Address City/[facility]code Phone Number [facility] DEPARTMENT OF PATHOLOGY AND [address] [place] [phone] [facility] Urine culture (01/07/2018 10:04 PM) Urine culture SEE COMMENTComment: Bacteriuria [facility] DEPARTMENT OF PATHOLOGY screen negative. AND GENOMIC MEDICINE Performing Organization Address City/[facility]code Phone Number [facility] DEPARTMENT OF PATHOLOGY AND [address] [place] [phone] [facility] ECG 12 lead (01/07/2018 9:33 PM)Only the most recent of8 resultswithin the time period is included. Ventricular rate 105 [facility] Atrial rate 105 [facility] IN interval 204 [facility] QRSD interval 160 [facility] QT interval 370 [facility] QTC interval 489 [facility] P axis 1 17 [facility] QRS axis 1 -45 [facility] T wave axis 108 [facility] EKG impression Electronic ventricular pacemaker-No previous [facility] MUSE ECGs available- Performing Organization Address [facility] Hospitalcosc Phone Number [facility] MUSE [address] [place] [phone] Partial thromboplastin time, activated (01/07/2018 9:24 PM)Only the most recent of2 resultswithin the time period is included. PTT 29.2 23.0 - 36.0 sec [facility] DEPARTMENT OF PATHOLOGY Comment: [facility] PTT therapeutic range for unfractionated heparin is 61.0-112.0 seconds which corresponds to Anti-Xa 0.3-0.7 U/ml. Specimen Blood Performing Organization Address City/State/Zipcode Phone Number [facility] DEPARTMENT OF PATHOLOGY AND [address] [place] [address] Prothrombin time with INR (01/07/2018 9:24 PM)Only the most recent of2 resultswithin the time period is included. Prothrombin time 13.9 12.0 - 15.0 sec [facility] DEPARTMENT OF PATHOLOGY AND [employer] MEDICINE INR 1.1 [facility] DEPARTMENT OF Comment: PATHOLOGY AND [employer] The International Normalized Ratio (INR) is a therapeutic MEDICINE monitoring tool for patients who are stable on oral anticoagulant therapy. An INR of 2.0-3.0 is suggested for deep vein thrombosis/pulmonary embolism. Specimen Blood Performing Organization Address City/[facility]code Phone Number [facility] DEPARTMENT OF PATHOLOGY AND [address] [place] [address] B natriuretic peptide (01/07/2018 9:24 PM)Only the most recent of5 resultswithin the time period is included. BNP 151 (H) 0 - 100 pg/mL [facility] DEPARTMENT OF PATHOLOGY AND [employer] [place] Specimen Blood Performing Organization Address City/[facility]code Phone Number [facility] DEPARTMENT OF PATHOLOGY AND [address] [place] [address] Comprehensive metabolic panel (01/07/2018 9:24 PM)Only the most recent of7 resultswithin the time period is included. Sodium 139 135 - 148 mEq/L [facility] DEPARTMENT OF PATHOLOGY AND [employer] MEDICINE Potassium 3.7 3.5 - 5.0 mEq/L [facility] DEPARTMENT OF PATHOLOGY AND GENOMIC MEDICINE Chloride 92 (L) 98 - 112 mEq/L [facility] DEPARTMENT OF PATHOLOGY AND GENOMIC MEDICINE CO2 37 (H) 24 - 31 mEq/L [facility] DEPARTMENT OF PATHOLOGY AND GENOMIC MEDICINE Anion gap 10 7 - 15 mEq/L [facility] DEPARTMENT OF Comment: PATHOLOGY AND GENOMIC Starting from December , anion gap calculation MEDICINE no longer incorporates potassium. Please note the change. BUN 26 (H) 8 - 23 mg/dL [facility] DEPARTMENT OF PATHOLOGY AND GENOMIC MEDICINE Creatinine 1.1 0.7 - 1.2 mg/dL [facility] DEPARTMENT OF PATHOLOGY AND GENOMIC MEDICINE Glucose 117 (H) 65 - 99 mg/dL [facility] DEPARTMENT OF PATHOLOGY AND GENOMIC MEDICINE Calcium 8.8 8.8 - 10.2 mg/dL [facility] DEPARTMENT OF PATHOLOGY AND GENOMIC MEDICINE Protein 5.9 (L) 6.3 - 8.3 g/dL [facility] DEPARTMENT OF Comment: PATHOLOGY AND GENOMIC 4.6-7.0 g/dL MEDICINE 1 week 4.4-7.6 g/dL 7 months-1year5.1-7.3 g/dL 1-2 years5.6-7.5 g/dL >3 years6.0-8.0 g/dL 18-150 6.3-8.3 g/dL Albumin 2.3 (L) 3.5 - 5.0 g/dL [facility] DEPARTMENT OF PATHOLOGY AND GENOMIC MEDICINE A/G ratio 0.6 (L) 0.7 - 3.8 [facility] DEPARTMENT OF PATHOLOGY AND GENOMIC MEDICINE Alkaline phosphatase 58 40 - 129 U/L [facility] DEPARTMENT OF PATHOLOGY AND GENOMIC MEDICINE AST 21 10 - 50 U/L [facility] DEPARTMENT OF PATHOLOGY AND GENOMIC MEDICINE ALT 24 5 - 50 U/L [facility] DEPARTMENT OF PATHOLOGY AND GENOMIC MEDICINE Total bilirubin 0.6 0.0 - 1.2 mg/dL [facility] DEPARTMENT OF PATHOLOGY AND GENOMIC MEDICINE Specimen Plasma specimen Performing Organization Address City/State/Zipcode Phone Number [facility] DEPARTMENT OF PATHOLOGY AND [address] [place] [address] [facility] MEDICINE XR Chest 2 Vw (01/07/2018 9:05 PM)Only the most recent of4 resultswithin the time period is included. Narrative Performed At EXAMINATION: XR CHEST 2 VW RADIANT CLINICAL HISTORY: dyspnealower extremity swelling COMPARISON:12/23/2017 chest x-ray. IMPRESSION: Scattered pulmonary infiltrates similar to the prior study. This could represent scar. No pleural effusion or pneumothorax. Calcific pleural plaques similar to the prior study. Cardiac silhouette normal. Right chest cardiac device. No acute osseous abnormalities. [facility]-[id number] Procedure Note Hm Interface, Radiology Results Incoming - 01/07/2018 9:15 PM CDT EXAMINATION: XR CHEST 2 VW CLINICAL HISTORY: dyspnea lower extremity swelling COMPARISON: 12/23/2017 chest x-ray. IMPRESSION: Scattered pulmonary infiltrates similar to the prior study. This could represent scar. No pleural effusion or pneumothorax. Calcific pleural plaques similar to the prior study. Cardiac silhouette normal. Right chest cardiac device. No acute osseous abnormalities. [facility]-[id number] Performing Organization Address City/[facility] Phone Number [facility] [address] [place] [address] Theophylline level (01/04/2018 3:50 PM)Only the most recent of2 resultswithin the time period is included. Theophylline 3.91 (L) 10.00 - 20.00 ug/mL [facility] DEPARTMENT OF PATHOLOGY AND Comment: GENOMIC MEDICINE Therapeutic Range: 10 - 20 ug/mL Specimen Plasma specimen Performing Organization Address [facility] Phone Number [facility] DEPARTMENT OF PATHOLOGY AND [address] [place] [address] GENOMIC MEDICINE IgG subclasses (12/30/2017 4:00 AM) Immunoglobulin G subclass 295 240 - 1,118 mg/dL [facility] 1 Comment: REFERENCE INTERVAL: Immunoglobulin G Subclass 1 Access complete set of age- and/or gender-specific reference intervals for this test in the [facility] ([facility]). Immunoglobulin G subclass 69 (L) 124 - 549 mg/dL [facility] 2 Comment: REFERENCE INTERVAL: Immunoglobulin G Subclass 2 Access complete set of age- and/or gender-specific reference intervals for this test in the [facility] ([employer]). Immunoglobulin G subclass 36 21 - 134 mg/dL [facility] 3 Comment: REFERENCE INTERVAL: Immunoglobulin G Subclass 3 Access complete set of age- and/or gender-specific reference intervals for this test in the [facility] ([employer]). Immunoglobulin G subclass 12 1 - 123 mg/dL [facility] 4 Comment: The total IgG (mg/dL) can be derived by the sum of the subclasses IgG1, IgG2, IgG3 and IgG4 values. However, a confirmatory and more precise total IgG is available by the nephelometric method of total IgG (Test # [id number]). REFERENCE INTERVAL: Immunoglobulin G Subclass 4 Access complete set of age- and/or gender-specific reference intervals for this test in the [facility] ([facility]). Performed by [facility], [address] [place] [id number] [email or web address], Samson Estrada MD - Lab. Director Specimen Serum Performing Organization Address [facility]/Zipcode Phone Number [facility] [address] [place] [address] Heparin PF4 antibody (IgG) (12/29/2017 4:00 AM) Heparin PF4 Ab OD reading 0.161 0.000 - 0.399 [facility] DEPARTMENT OF PATHOLOGY AND GENOMIC MEDICINE Heparin PF4 Ab, IgG Negative Negative [facility] DEPARTMENT OF PATHOLOGY AND GENOMIC MEDICINE Specimen Blood Performing Organization Address City/[facility] Phone Number [facility] DEPARTMENT OF PATHOLOGY AND [address] [place] [address] Surgical pathology request (12/28/2017 9:53 AM) [facility] DEPARTMENT OF PATHOLOGY AND GENOMIC MEDICINE Surgical pathology report See link below for PDF [facility] DEPARTMENT OF Lab Report PATHOLOGY AND GENOMIC MEDICINE Result status This is Final Report to [facility] DEPARTMENT OF [id number] PATHOLOGY AND GENOMIC MEDICINE Performing Organization Address [facility] Phone Number [facility] DEPARTMENT OF PATHOLOGY AND [address] [place] [address] CT Soft Tissue Neck Wo Contrast (12/24/2017 6:19 AM) Narrative Performed At EXAMINATION:CT SOFT TISSUE NECK WO CONTRAST RADIANT CT IMAGING WAS PERFORMED WITH ITERATIVE RECONSTRUCTION TECHNIQUE AND/OR AUTOMATED EXPOSURE CONTROL TO REDUCE RADIATION DOSE. CLINICAL HISTORY:dysphagiaglobus sensation COMPARISON:None. FINDINGS: 1. There is no mass lesion demonstrated in the aerodigestive tract. There is no foreign body. 2.There is marked spondylosis and degenerative change in the disc at C6-7 and to a lesser degree C5-6 and C4-5 with a relatively prominent anterior osteophyte formation atC6-7 and to a lesser degree C5-6 minimally contacting the posterior wall of the hypopharynx. It is not clear if this would be clinically significant. 3.There is no mass lesion demonstrated in the neck. 4.There is a transvenous pacemaker on the right. IMPRESSION: No definite abnormality of clinical significance. [facility]-[id number] Procedure Note Interface, Radiology Results - 12/24/2017 6:33 AM CDT EXAMINATION: CT SOFT TISSUE NECK WO CONTRAST CT IMAGING WAS PERFORMED WITH ITERATIVE RECONSTRUCTION TECHNIQUE AND/OR AUTOMATED EXPOSURE CONTROL TO REDUCE RADIATION DOSE. CLINICAL HISTORY: dysphagia globus sensation COMPARISON: None. FINDINGS: 1. There is no mass lesion demonstrated in the aerodigestive tract. There is no foreign body. 2. There is marked spondylosis and degenerative change in the disc at C6-7 and to a lesser degree C5-6 and C4-5 with a relatively prominent anterior osteophyte formation at C6-7 and to a lesser degree C5-6 minimally contacting the posterior wall of the hypopharynx. It is not clear if this would be clinically significant. 3. There is no mass lesion demonstrated in the neck. 4. There is a transvenous pacemaker on the right. IMPRESSION: No definite abnormality of clinical significance. [facility]-[id number] Performing Organization Address City/State/Zipcode Phone Number [facility] [address] [place] [address] CT Chest Wo Contrast (12/24/2017 6:16 AM) Narrative Performed At EXAMINATION: [facility] CT CHEST WO CONTRAST CLINICAL HISTORY: SHORTNESS OF BREATH TECHNIQUE: Multiple axial images were obtained from the lung apices to the lung bases without the administration of intravenous contrast.The lack of intravenous contrast reduces the sensitivity of detecting solid organ disease and evaluating vasculature. High-resolution, prone, expiratory, coronal, and sagittal reformats were obtained.CT imaging was performed with iterative reconstruction technique and/or automated exposure control to reduce radiation dose. COMPARISON: 12/10/2017 FINDINGS: Heart size is normal. There is minimal coronary artery calcification. The aorta measures within normal limits.The pulmonary artery is within normal limits. Mildly enlarged aorticopulmonary window lymph node is again seen measuring 16 x 10 mm. Some small mediastinal lymph nodes are also present. Bilateral areas of air trapping are compatible with emphysema. Bilateral bronchial wall thickening is present. Calcified right upper lobe granuloma is seen. Bilateral calcified pleural plaques are compatible with asbestos related pleural disease. Very tiny left upper lobe pulmonary nodule is not likely to be clinically significant and measures 3 x 2 mm. Several tiny nodules in the anterior left lingula are clustered and nonspecific. They may be postinflammatory but follow-up is recommended to evaluate for stability or resolution. Bilateral bronchial wall thickening. The liver, spleen, pancreas, adrenals, and kidneys are normal in appearance. The patient is status post cholecystectomy. There are degenerative changes in the spine. Bones are osteopenic. IMPRESSION: Emphysema, enlarged aorticopulmonary window lymph node. Nonspecific left upper lobe pulmonary nodules.Asbestos-related pleural disease. Procedure Note Interface, Radiology Results Incoming - 12/25/2017 5:15 PM CDT EXAMINATION: CT CHEST WO CONTRAST CLINICAL HISTORY: SHORTNESS OF BREATH TECHNIQUE: Multiple axial images were obtained from the lung apices to the lung bases without the administration of intravenous contrast.The lack of intravenous contrast reduces the sensitivity of detecting solid organ disease and evaluating vasculature. High-resolution, prone, expiratory, coronal, and sagittal reformats were obtained.CT imaging was performed with iterative reconstruction technique and/ or automated exposure control to reduce radiation dose. COMPARISON: 12/10/2017 FINDINGS: Heart size is normal. There is minimal coronary artery calcification. The aorta measures within normal limits. The pulmonary artery is within normal limits. Mildly enlarged aorticopulmonary window lymph node is again seen measuring 16 x 10 mm. Some small mediastinal lymph nodes are also present. Bilateral areas of air trapping are compatible with emphysema. Bilateral bronchial wall thickening is present. Calcified right upper lobe granuloma is seen. Bilateral calcified pleural plaques are compatible with asbestos related pleural disease. Very tiny left upper lobe pulmonary nodule is not likely to be clinically significant and measures 3 x 2 mm. Several tiny nodules in the anterior left lingula are clustered and nonspecific. They may be postinflammatory but follow-up is recommended to evaluate for stability or resolution. Bilateral bronchial wall thickening. The liver, spleen, pancreas, adrenals, and kidneys are normal in appearance. The patient is status post cholecystectomy. There are degenerative changes in the spine. Bones are osteopenic. IMPRESSION: Emphysema, enlarged aorticopulmonary window lymph node. Nonspecific left upper lobe pulmonary nodules.Asbestos-related pleural disease. Performing Organization Address City/State/Zipcode Phone Number [facility] [address] [place] [address] Respiratory pathogen panel (12/24/2017 12:24 AM)Only the most recent of4 resultswithin the time period is included. Respiratory pathogen Negative for all pathogens tested: [facility] DEPARTMENT OF panel Negative for Adenovirus PATHOLOGY AND GENOMIC Negative for Coronavirus HKU1 MEDICINE Negative for Coronavirus NL63 Negative for Coronavirus 229E Negative for Coronavirus OC43 Negative for Human Metapneumovirus Negative for Rhinovirus/Enterovirus Negative for Influenza A Negative for Influenza A/H1 Negative for Influenza A/H3 Negative for Influenza A/H1-2009 Negative for Influenza B Negative for Parainfluenza Virus 1 Negative for Parainfluenza Virus 2 Negative for Parainfluenza Virus 3 Negative for Parainfluenza Virus 4 Negative for Respiratory Syncytial Virus Negative for Bordetella pertussis Negative for Chlamydophila pneumoniae Negative for Mycoplasma pneumoniae This real-time PCR assay detects the presence of nucleic acids (RNA or DNA) for the respiratory pathogens listed. A result of "Not-detected" does not exclude the possibility of the presence of one or more pathogens at concentrations less than the detectable limits of the assay. Comment: Specimen Information Specimen Source: Nares Specimen Site: Not specified Specimen Nares Performing Organization Address City/[facility] Phone Number [facility] DEPARTMENT OF PATHOLOGY AND [address] [place] [address] Arterial blood gas (12/23/2017 8:11 PM)Only the most recent of3 resultswithin the time period is included. pH, arterial 7.45 7.35 - 7.45 [facility] DEPARTMENT OF PATHOLOGY AND GENOMIC MEDICINE pCO2, arterial 42 35 - 45 mmHg [facility] DEPARTMENT OF PATHOLOGY AND GENOMIC MEDICINE pO2, arterial 79 (L) 80 - 90 mmHg [facility] DEPARTMENT OF PATHOLOGY AND GENOMIC MEDICINE Bicarbonate, arterial 29.0 (H) 21.0 - 28.0 mmol/L [facility] DEPARTMENT OF PATHOLOGY AND GENOMIC MEDICINE Base excess, arterial 5 (H) -2 - 2 mEq/L [facility] DEPARTMENT OF PATHOLOGY AND GENOMIC MEDICINE O2 saturation, arterial 96 95 - 100 % [facility] DEPARTMENT OF PATHOLOGY AND GENOMIC MEDICINE Specimen Blood Performing Organization Address City/[facility] Phone Number [facility] DEPARTMENT OF PATHOLOGY AND [address] [place] [address] ECG ED Preliminary Interpretation - NOT AN ORDER (12/23/2017 7:28 PM)Only the most recent of3 resultswithin the time period is included. Narrative Performed At Lorenza Landry MD 12/25/2017 12:11 AM ECG ED Preliminary Interpretation - Not an Order Performed by: LORENZA LANDRY Authorized by: LORENZA LANDRY ECG reviewed by ED Physician in the absence of a quick print operator: yes Previous ECG: Previous ECG:Compared to current Comparison ECG info:EKG from December 10 Similarity:No change Interpretation: Interpretation: abnormal Rate: ECG rate:91 ECG rate assessment: normal Rhythm: Rhythm: paced Pacing: Type of pacing:Ventricular QRS: QRS axis:Left QRS intervals:Normal Magnesium level (12/13/2017 4:30 AM)Only the most recent of2 resultswithin the time period is included. Magnesium 1.8 1.6 - 2.4 mg/dL [facility] DEPARTMENT OF PATHOLOGY AND GENOMIC MEDICINE Specimen Plasma specimen Performing Organization Address [facility] Phone Number [facility] DEPARTMENT OF PATHOLOGY AND [address] [place] [address] Lactic acid level (12/12/2017 1:43 PM)Only the most recent of2 resultswithin the time period is included. Lactic acid 3.3 (H) 0.5 - 2.2 mmol/L [facility] DEPARTMENT OF PATHOLOGY AND GENOMIC MEDICINE Specimen Blood Performing Organization Address [facility] Phone Number [facility] DEPARTMENT OF PATHOLOGY AND [address] [place] [address] Lactic acid level, SEPSIS - Now and repeat 2x every 3 hours (12/10/2017 9:28 PM )Only the most recent of3 resultswithin the time period is included. Lactic acid 2.5 (H) 0.5 - 2.2 mmol/L [facility] DEPARTMENT OF PATHOLOGY AND GENOMIC MEDICINE Specimen Blood Performing Organization Address [facility] Phone Number [facility] DEPARTMENT OF PATHOLOGY AND [address] [place] [address] CT Angiogram Pe Chest (12/10/2017 7:31 PM)Only the most recent of2 resultswithin the time period is included. Narrative Performed At CT ANGIOGRAM PE CHEST RADIANT INDICATION:dyspnea TECHNIQUE: Multidetector CT of the chest with attention to the pulmonary arteries was performed following the intravenous administration of iodinated contrast with automated exposure control and/or iterative reconstruction techniques to radiation dose.Post-processed 3D MIP images were also performed for CT angiography. COMPARISON:11/07/2017 FINDINGS: PULMONARY ARTERIES:The pulmonary arteries are diagnostically opacified without findings for acute pulmonary embolus. HEART AND GREAT ARTERIES:The heart is mildly enlarged without effusion. Prominent calcifications of the aortic valve are noted without dilatation of the ascending aorta. MEDIASTINUM AND AMIRAH: No mass or hematoma is identified.No enlarged lymph nodes are seen.Trachea and central airways are patent. LUNGS:There are mild changes of COPD through the lungs with small areas of centrilobular emphysema and hyperexpansion. There are chronic interstitial opacities with multifocal areas of diffuse peribronchial thickening with peripheral so-called tree-in-bud reticular nodular opacities consistent with acute infectious or inflammatory disease. There are now more confluent and less than 7 mm nodules in the left upper lobe which could also be inflammatory. Short-term follow-up in 3-6 months is recommended. PLEURA: Multiple calcified pleural plaques are present consistent with asbestos exposure. No effusion or pneumothorax. CHEST WALL:A right-sided pacing device is noted with leads extending to the right atrium and right ventricle. This prominent rightward curvature of the thoracolumbar spine with moderate spondylosis.. VISUALIZED ABDOMEN: Cholecystectomy noted with pneumobilia in the left biliary ducts as before, correlate for sphincterotomy or other biliary intervention history. Interval decrease of indeterminate nodularity about Morison's pouch from prior. IMPRESSION: 1. No findings for acute pulmonary embolism. 2. Stable changes of COPD with multiple pleural-based plaques. 3. Multifocal peribronchial thickening with multiple tree-in-bud nodules, findings consistent with acute infectious Or inflammatory disease, follow-up in 3-6 months recommended given more confluent less than 7 mm nodules in the left upper lobe. Please see report. Thank you for allowing us to participate in the care of your patient. [facility]-[id number] Procedure Note [facility], Radiology Results Incoming - 12/10/2017 7:[address] ANGIOGRAM PE CHEST INDICATION: dyspnea TECHNIQUE: Multidetector CT of the chest with attention to the pulmonary arteries was performed following the intravenous administration of iodinated contrast with automated exposure control and/or iterative reconstruction techniques to radiation dose. Post-processed 3D MIP images were also performed for CT angiography. COMPARISON: 11/07/2017 FINDINGS: PULMONARY ARTERIES: The pulmonary arteries are diagnostically opacified without findings for acute pulmonary embolus. HEART AND GREAT ARTERIES: The heart is mildly enlarged without effusion. Prominent calcifications of the aortic valve are noted without dilatation of the ascending aorta. MEDIASTINUM AND AMIRAH: No mass or hematoma is identified. No enlarged lymph nodes are seen. Trachea and central airways are patent. LUNGS: There are mild changes of COPD through the lungs with small areas of centrilobular emphysema and hyperexpansion. There are chronic interstitial opacities with multifocal areas of diffuse peribronchial thickening with peripheral so-called tree-in-bud reticular nodular opacities consistent with acute infectious or inflammatory disease. There are now more confluent and less than 7 mm nodules in the left upper lobe which could also be inflammatory. Short-term follow-up in 3-6 months is recommended. PLEURA: Multiple calcified pleural plaques are present consistent with asbestos exposure. No effusion or pneumothorax. CHEST WALL: A right-sided pacing device is noted with leads extending to the right atrium and right ventricle. This prominent rightward curvature of the thoracolumbar spine with moderate spondylosis.. VISUALIZED ABDOMEN: Cholecystectomy noted with pneumobilia in the left biliary ducts as before, correlate for sphincterotomy or other biliary intervention history. Interval decrease of indeterminate nodularity about Morison's pouch from prior. IMPRESSION: 1. No findings for acute pulmonary embolism. 2. Stable changes of COPD with multiple pleural-based plaques. 3. Multifocal peribronchial thickening with multiple tree-in-bud nodules, findings consistent with acute infectious Or inflammatory disease, follow-up in 3-6 months recommended given more confluent less than 7 mm nodules in the left upper lobe. Please see report. Thank you for allowing us to participate in the care of your patient. [facility]-[id number] Performing Organization Address City/State/Zipcode Phone Number [facility] [address] [place] [address] XR Chest 1 Vw Portable (12/10/2017 4:38 PM)Only the most recent of3 resultswithin the time period is included. Narrative Performed At EXAMINATION:XR CHEST 1 VW PORTABLE RADIBANNER CLINICAL HISTORY:SHORTNESS OF BREATH COMPARISON:Single view chest from 11/07/[address] chest with contrast from 11/07/2017 IMPRESSION: An AP radiograph of the chest was submitted for interpretation. Calcified pleural plaques are again seen bilaterally. No focal areas of consolidation. No pleural effusion or pneumothorax. No midline shift. No new focal areas of consolidation. The mediastinal contours and cardiac silhouette are unchanged. Atherosclerotic disease. Stable positioning of a right-sided pacemaker. The bones are unremarkable. [facility]-[id number] Procedure Note Interface, Radiology Results Incoming - 12/10/2017 4:45 PM CDT EXAMINATION: XR CHEST 1 VW PORTABLE CLINICAL HISTORY: SHORTNESS OF BREATH COMPARISON: Single view chest from 11/07/[address] chest with contrast from IMPRESSION: An AP radiograph of the chest was submitted for interpretation. Calcified pleural plaques are again seen bilaterally. No focal areas of consolidation. No pleural effusion or pneumothorax. No midline shift. No new focal areas of consolidation. The mediastinal contours and cardiac silhouette are unchanged. Atherosclerotic disease. Stable positioning of a right-sided pacemaker. The bones are unremarkable. [facility]-[id number] Performing Organization Address [facility]/Zipcode Phone Number [facility] [address] [place] [address] XR Abdomen 1 Vw (12/10/2017 4:38 PM) Narrative Performed At EXAMINATION:XR ABDOMEN 1 VW RADIANT CLINICAL HISTORY:abd distension COMPARISON:KUB from 10/13/2017 IMPRESSION: Nonspecific bowel gas pattern. No dilated loops of bowel.A moderate amount of stool is seen within the ascending colon. Osteopenia. Degenerative changes are seen within the lumbar spine. Orthopedic hardware is seen within the right hip. [facility]-[id number] Procedure Note Hm Interface, Radiology Results Incoming - 12/10/2017 4:44 PM CDT EXAMINATION: XR ABDOMEN 1 VW CLINICAL HISTORY: abd distension COMPARISON: KUB from 10/13/2017 IMPRESSION: Nonspecific bowel gas pattern. No dilated loops of bowel. A moderate amount of stool is seen within the ascending colon. Osteopenia. Degenerative changes are seen within the lumbar spine. Orthopedic hardware is seen within the right hip. [facility]-[id number] Performing Organization Address [facility] Phone Number [facility] [facility] [address] [place] [address] Blood culture, aerobic & anaerobic (12/10/2017 3:40 PM)Only the most recent of5 resultswithin the time period is included. Blood culture isolate No growth after 5 days of incubation. [facility] DEPARTMENT OF Comment: PATHOLOGY AND [employer] Specimen Information MEDICINE Specimen Source: Blood Specimen Site: Arm, left Specimen Blood - Arm, left Performing Organization Address [facility] Phone Number [facility] DEPARTMENT OF PATHOLOGY AND [address] [place] [phone] [employer] POC glucose (11/09/2017 8:28 AM)Only the most recent of2 resultswithin the time period is included. POC glucose 162 (H) 65 - 99 mg/dL [facility] DEPARTMENT OF PATHOLOGY AND Comment: [employer] Administered Insulin Meter ID: [id number] Digital Sales Director: Tony Mitchell Performing Organization Address [facility]/Zipcode Phone Number [facility] DEPARTMENT OF PATHOLOGY AND [address] CRITICAL CARE (11/07/2017 6:00 PM) Narrative Performed At Kip Gilmore MD 11/09/20178:49 AM Critical Care Performed by: KIP GILMORE Authorized by: KIP GILMORE Critical care provider statement: Critical care time (minutes):35 Critical care time was exclusive of:Separately billable procedures and treating other patients and teaching time Critical care was necessary to treat or prevent imminent or life-threatening deterioration of the following conditions:Respiratory failure Critical care was time spent personally by me on the following activities:Blood draw for specimens, development of treatment plan with patient or surrogate, discussions with consultants, discussions with primary provider, evaluation of patient's response to treatment, examination of patient, ordering and performing treatments and interventions, ordering and review of laboratory studies, ordering and review of radiographic studies, pulse oximetry and re-evaluation of patient's condition Manuel 'yes' if you are taking over critical care for this patient from another provider.: no CRITICAL CARE (10/15/2017 12:01 PM) Narrative Performed At Kip Gilmore MD 10/15/2017 12:01 PM Critical Care Performed by: KIP GILMORE Authorized by: KIP GILMORE Critical care provider statement: Critical care time (minutes):35 Critical care time was exclusive of:Separately billable procedures and treating other patients Critical care was necessary to treat or prevent imminent or life-threatening deterioration of the following conditions:Respiratory failure Critical care was time spent personally by me on the following activities:Blood draw for specimens, development of treatment plan with patient or surrogate, discussions with consultants, discussions with primary provider, evaluation of patient's response to treatment, examination of patient, ordering and performing treatments and interventions, ordering and review of laboratory studies, ordering and review of radiographic studies, pulse oximetry, re-evaluation of patient's condition and review of old charts Manuel 'yes' if you are taking over critical care for this patient from another provider.: no Echocardiogram complete w contrast and 3D if needed (10/14/2017 9:12 AM) Narrative [facility]formed At [facility] Echocardi[facility] Report [id number]Name:LUALEXISTHIAGO AGUILARSandroeben.ID:[id number] .Date: 10/14/2017 Refer.MD:ALMAZ GARZA MD Exam Time: 8:37:00 AMStudy Type:Routine Echo Height:67inWeight: 175lb BSA: 1.91 m2 DOBAge:1940,76Y Sex: MALEBP:169/79 Sonogrphr: Quinten Alfonso, DAISY, RDLAURA, RICARDO Leon. Stat.:Inpatient Room:[address] Status:Final Echo Event ID:[id number] Order ID:[id number] Reason for Study:HF; initial eval with symptoms Procedures:2D Echo, Colorflow Doppler Race:C SUMMARY: LV size is normal. LV EF is normal. LVEF is 62%. RV size is normal. RV systolic function is normal. Diastolic dysfunction Grade I (Mild): Impaired relaxation with normal LV filling pressures. Estimated PA systolic pressure is 24 mmHg, assuming a mean RAP of 5 mmHg. FINDINGS: LV: LV size is normal. LV EF is normal. LVEF is 62%. Overall wallmotion is normal. Septal motion is paradoxical secondaryto LBBB or conduction abnormality. RV: RV size is normal. RV systolic function is normal. LA: LA volume is mild to moderately enlarged. RA: RA size is normal. AO: Aortic root diameter is normal. TARAN: No pericardial effusion. IAS:Interatrial septum is redundant. Interatrial septum is thickenedconsistent with lipomatous hypertrophy. AV: Mild to moderate thickening and calcification of AV leaflets. MV: Moderate mitral annular calcification. PV: No structural PV abnormalities noted. TV: No structural TV abnormalities noted. Mild tricuspid regurgitation Ch: Hepatic vein pressure is normal, RA pressure < 5mmHg. Diastolicdysfunction Grade I (Mild): Impaired relaxation withnormal LV filling pressures. Other:Estimated PA systolic pressure is 24 mmHg, assuming a mean RAPof 5 mmHg. MEASUREMENTS: 2D Parasternal [place] LVOT 2.1 cmLA Ds3.8 cm LVIDd4.5 cmIndex2.3 cm/m Ao An2.3 cm LVIDs3.1 cmAo Rtd 3.8 cm Index2 cm/m LV%fs 31.1 % LV Xaua883 g(122-174) IVSd 1.1 cmLVM Index 91.6 g/m2 LVPWd1.1 cmRWT0.5 LA Sng Plane LA Area 24.7 cm2(8.8-23.4) LA Vol76.8 ml Index40.2 ml/m LA LngAx 6.2 cm RA Sng Plane RA Area 22.6 cm2(8.3-19.5) RA Vol74.9 ml Index39.2 ml/m RA LngAx 5.2 cm DOPPLER LVOT For Flow LVOT Area4.2 cm2 LVOT SV 61.3 ml LVOTpkVel 90.8 cm/sHR81.7 bpm LVOTpkPG 3.3 mmHgLVOT CO5 l/min LVOTmnPG 1.7 mmHgLVOT CI2.6 l/m/m2 LVOT TVI14.7 cm Signed 10/14/2017 04:31 PM Mushtaq Aleman M.D. Procedure Note Interface, Radiology Results In - 10/14/2017 4:31 PM [employer] Echocardiography Report [id number] [facility], [place] [address], [place] [address] [facility].Name: THIAGO PRUITT.ID: [id number] .Date: 10/14/2017 Refer.MD: ALMAZ GARZA MD Exam Time: 8:37:00 AM Study Type:Routine Echo Height: 67in Weight: 175lb BSA: 1.91 m2 Age: 4 1940,76Y Sex: MALE BP: 169/79 Sonogrphr: Quinten Alfonso, RCS, RDCS, RICARDO Pat. Stat.:Inpatient Room: M541 Study Status:Final Echo Event ID:[id number] Order ID: [id number] Reason for Study:HF; initial eval with symptoms Procedures:2D Echo, Colorflow Doppler Race: C SUMMARY: LV size is normal. LV EF is normal. LVEF is 62%. RV size is normal. RV systolic function is normal. Diastolic dysfunction Grade I (Mild): Impaired relaxation with normal LV filling pressures. Estimated PA systolic pressure is 24 mmHg, assuming a mean RAP of 5 mmHg. FINDINGS: LV: LV size is normal. LV EF is normal. LVEF is 62%. Overall wall motion is normal. Septal motion is paradoxical secondary to LBBB or conduction abnormality. RV: RV size is normal. RV systolic function is normal. LA: LA volume is mild to moderately enlarged. RA: RA size is normal. AO: Aortic root diameter is normal. TARAN: No pericardial effusion. IAS: Interatrial septum is redundant. Interatrial septum is thickened consistent with lipomatous hypertrophy. AV: Mild to moderate thickening and calcification of AV leaflets. MV: Moderate mitral annular calcification. PV: No structural PV abnormalities noted. TV: No structural TV abnormalities noted. Mild tricuspid regurgitation Ch: Hepatic vein pressure is normal, RA pressure < 5mmHg. Diastolic dysfunction Grade I (Mild): Impaired relaxation with normal LV filling pressures. Other: Estimated PA systolic pressure is 24 mmHg, assuming a mean RAP of 5 mmHg. MEASUREMENTS: 2D Parasternal [place] LVOT 2.1 cm LA Ds 3.8 cm LVIDd 4.5 cm Index 2.3 cm/m Ao An 2.3 cm LVIDs 3.1 cm Ao Rtd 3.8 cm Index 2 cm/m LV%fs 31.1 % LV Mass 175 g (122-174) IVSd 1.1 cm LVM Index 91.6 g/m2 LVPWd 1.1 cm RWT 0.5 LA Sng Plane LA Area 24.7 cm2 (8.8-23.4) LA Vol 76.8 ml Index 40.2 ml/m LA LngAx 6.2 cm RA Sng Plane RA Area 22.6 cm2 (8.3-19.5) RA Vol 74.9 ml Index 39.2 ml/m RA LngAx 5.2 cm DOPPLER LVOT For Flow LVOT Area 4.2 cm2 LVOT SV 61.3 ml LVOTpkVel 90.8 cm/s HR 81.7 bpm LVOTpkPG 3.3 mmHg LVOT CO 5 l/min LVOTmnPG 1.7 mmHg LVOT CI 2.6 l/m/m2 LVOT TVI 14.7 cm Signed 10/14/2017 04:31 PM Mushtaq Aleman M.D. Performing Organization Address [facility] Phone Number [facility] [address] [place] [address] Thyroid stimulating hormone (10/14/2017 5:00 AM) TSH 0.54 0.27 - 4.20 uIU/mL [facility] DEPARTMENT OF PATHOLOGY AND GENOMIC MEDICINE Specimen Plasma specimen Performing Organization Address [facility]code Phone Number [facility] DEPARTMENT OF PATHOLOGY AND [address] [place] [address] GENOMIC MEDICINE T4, free (10/14/2017 5:00 AM) T4, free 1.1 0.9 - 1.7 ng/dL [facility] DEPARTMENT OF PATHOLOGY AND GENOMIC MEDICINE Specimen Plasma specimen Performing Organization Address [facility] Phone Number [facility] DEPARTMENT OF PATHOLOGY AND [address] Phosphorus level (10/14/2017 5:00 AM) Phosphorus 2.6 2.4 - 4.5 mg/dL [facility] DEPARTMENT OF PATHOLOGY AND GENOMIC MEDICINE Specimen Plasma specimen Performing Organization Address City/[facility] Phone Number [facility] DEPARTMENT OF PATHOLOGY AND [address] [place] [phone] [place] [address] Hemoglobin A1c (10/14/2017 5:00 AM) Hemoglobin A1C 6.2 (H) 4.0 - 5.6 % [facility] DEPARTMENT OF PATHOLOGY Comment: AND [facility] HbA1c cutoffs for diagnosing diabetes: 4.0% - 5.6%=normal 5.7% - 6.4%=increased risk for diabetes (prediabetes) >=6.5%=diabetes Goals for glycemic control (ADA 2016) < 7.0%Target for non adults with diabetes. More or less stringent targets may be appropriate for individual patients. <7.5% Target for Children and adolescents with type 1 diabetes. Specimen Blood Performing Organization Address City/[facility] Phone Number [facility] DEPARTMENT OF PATHOLOGY AND [address] [place] [address] Creatine kinase, total (CPK) (10/14/2017 5:00 AM)Only the most recent of2 resultswithin the time period is included. Creatine kinase 25 (L) 39 - 308 U/L [facility] DEPARTMENT OF PATHOLOGY AND GENOMIC MEDICINE Specimen Plasma specimen Performing Organization Address [facility] Phone Number [facility] DEPARTMENT OF PATHOLOGY AND [address] [place] [phone] [place] [address] Hepatic function panel (10/14/2017 5:00 AM) Albumin 2.6 (L) 3.5 - 5.0 g/dL [facility] DEPARTMENT OF PATHOLOGY AND GENOMIC MEDICINE Total bilirubin 0.3 0.0 - 1.2 mg/dL [facility] DEPARTMENT OF PATHOLOGY AND GENOMIC MEDICINE Bilirubin direct <0.2 0.0 - 0.3 mg/dL [facility] DEPARTMENT OF PATHOLOGY AND GENOMIC MEDICINE Alkaline phosphatase 49 40 - 129 U/L [facility] DEPARTMENT OF PATHOLOGY AND GENOMIC MEDICINE Protein 6.3 6.3 - 8.3 g/dL [facility] DEPARTMENT OF Comment: PATHOLOGY AND GENOMIC [place] 4.6-7.0 g/dL MEDICINE 1 week 4.4-7.6 g/dL 7 months-1year5.1-7.3 g/dL 1-2 years5.6-7.5 g/dL >3 years6.0-8.0 g/dL 18-150 6.3-8.3 g/dL ALT 8 5 - 50 U/L [facility] DEPARTMENT OF PATHOLOGY AND GENOMIC MEDICINE AST 13 10 - 50 U/L [facility] DEPARTMENT OF PATHOLOGY AND GENOMIC MEDICINE Specimen Plasma specimen Performing Organization Address City/[facility] Phone Number [facility] DEPARTMENT OF PATHOLOGY AND [address] [place] [phone] [employer] MEDICINE Lipid panel (10/14/2017 5:00 AM) Cholesterol 145 <200 mg/dL [facility] DEPARTMENT OF PATHOLOGY AND GENOMIC MEDICINE Triglycerides 63 <150 mg/dL [facility] DEPARTMENT OF PATHOLOGY AND GENOMIC MEDICINE HDL cholesterol 33 (L) >40 mg/dL [facility] DEPARTMENT OF PATHOLOGY AND GENOMIC MEDICINE LDL cholesterol 102 (H)Comment: Result <100 mg/dL [facility] DEPARTMENT obtained by direct LDL PATHOLOGY AND GENOMIC measurement MEDICINE Lipid panel interpretation SeeBelow [facility] DEPARTMENT OF Comment: PATHOLOGY AND GENOMIC Total Cholesterol (mg/dL) MEDICINE <200 Desirable [id number]-tqsb >=240High Triglycerides (mg/dL) <150 Normal [id number]-dyxn 200-499High >=500Very high HDL Cholesterol (mg/dL) <40Low (male) <40Low (female) LDL Cholesterol (mg/dL) <100 Optimal 100-129Near or above optimal [id number]-khmn 160-189High >=190Very high Risk Catergories that modify LDL goals. Risk CatergoriesLDL goal (mg/dL) CHD and CHD risk equivalent<100 (10-year risk >20%) Multiple (2+) risk factors <130 (10-year risk=<20%) 0-1 risk factors <160 (<10-year risk) Defining levels of lipids in metabolic syndrome Triglycerides>=150 mg/dL HDL Cholesterol Men<40 mg/dL Women<40 mg/dL Non-HDL cholesterol is a second target for therapy in persons with high triglycerides (>=200 mg/dL) Specimen Plasma specimen Performing Organization Address City/[facility]/Zipcode Phone Number [facility] DEPARTMENT OF PATHOLOGY AND [address] [place] [address] [employer] MEDICINE XR Abdomen 1 Vw Portable (10/13/2017 8:31 PM) Narrative Performed At EXAMINATION:XR ABDOMEN 1 VW PORTABLE [facility] CLINICAL HISTORY:ABDOMINAL PAIN, constipation COMPARISON: To previous examination from 04/08/2016 FINDINGS: The bowel gas pattern is nonspecific, without evidence of small bowel distention. Moderate arthritic changes are noted involving the spine. A significant amount of feces is not present. IMPRESSION: Unremarkable abdominal radiograph. [facility]-[id number] Procedure Note Hm Interface, Radiology Results Incoming - 10/13/2017 10:53 PM [employer] EXAMINATION: XR ABDOMEN 1 VW PORTABLE CLINICAL HISTORY: ABDOMINAL PAIN, constipation COMPARISON: To previous examination from 04/08/2016 FINDINGS: The bowel gas pattern is nonspecific, without evidence of small bowel distention. Moderate arthritic changes are noted involving the spine. A significant amount of feces is not present. IMPRESSION: Unremarkable abdominal radiograph. [facility]-[id number] Performing Organization Address [facility] Phone Number [facility] [address] [place] [address] Digoxin level (10/13/2017 8:23 PM) Digoxin 0.6 (L) 0.8 - 2.0 ng/mL [facility] DEPARTMENT OF PATHOLOGY Comment: AND [employer] For valid Digoxin results, at least 6 hours should elapse between time of last dose and collection of blood. Otherwise, result may be false high. Therapeutic Range: 0.8 - 2.0 ng/mL Specimen Plasma specimen Performing Organization Address City/[facility] Phone Number [facility] DEPARTMENT OF PATHOLOGY AND [address] [place] [address] [place] [address] Abdomen Pelvis Wo Contrast (10/10/2017 5:22 PM)Only the most recent of2 resultswithin the time period is included. Narrative Performed At EXAM: CT ABDOMEN PELVIS WO CONTRAST [facility] CLINICAL HISTORY:rlq pain TECHNIQUE: Multidetector CT of the abdomen and pelvis was performed without intravenous administration of iodinated contrast with multiplanar reformats. CT scans are performed using radiation dose reduction techniques (iterative reconstruction and/or automated exposure control). Technical factors are evaluated and adjusted to ensure appropriate moderation of exposure. Automated dose management technology is applied to adjust radiation exposure while achieving a diagnostic quality image. COMPARISON:07/27/2017 FINDINGS: Lung bases: Mild to moderate emphysematous changes with bleb formation identified. Dependent atelectasis is seen. Inferior pleural-based calcifications are again noted, nonspecific but may be reflective of prior asbestos exposure. The distal tip of a cardiac pacemaker lead is identified. Dystrophic calcifications are seen within the aortic valve and mitral valve. No sizable pericardial effusion is present. The visualized esophagus is intact. Liver: Interval enlargement of an exophytic, lobulated lesion along the right lobe of the liver, now measuring up to 3.8 x 2.7 cm in transaxial dimensions. It demonstrates a Hounsfield attenuation of 20 and may reflect a lobulated cyst. Nonemergent ultrasound is recommended for further evaluation. Otherwise no new suspicious focal hepatic lesions identified on this noncontrast examination. Left hepatic pneumobilia again seen, unchanged from the prior examination. Gallbladder: Patient is status post cholecystectomy. Pancreas: Minimal fatty infiltration. No large mass identified on this noncontrast examination. No pancreatic duct dilatation. Spleen: Unremarkable. GI system: Stomach is unremarkable in appearance. Small and large bowel are normal in caliber. Scattered colonic diverticula are identified without evidence of diverticulitis. Appendix is visualized and unremarkable. No free fluid or focal fluid collection seen. No pneumoperitoneum is present. Adrenal glands: Unremarkable. Kidneys: Symmetrical in shape. Bilateral perinephric stranding is again seen, not significantly changed from the prior examination and likely reflective of scarring from prior inflammatory episodes. No large obstructing calculus, hydronephrosis, or hydroureter is seen. Bladder: Unremarkable. Reproductive organs: A few small calcifications are identified within the prostate gland which is mildly enlarged (approximately 5.2 cm transverse dimension (image 136, series 2). Lymph nodes:No enlarged lymph nodes in the abdomen or pelvis. Vascular:Mild atherosclerotic changes of the abdominal aorta and major branch vessels. Evaluation of vessel lumens is limited due to lack of IV contrast. Abdominal wall:Unremarkable. Bones:Scoliotic degenerative changes of the spine are noted. No acute osseous abnormality identified. Evidence for a right femoral intramedullary nish and intertrochanteric locking screw. IMPRESSION: 1.Interval enlargement of right hepatic exophytic lesion , now measuring up to 3.8 x 2.7 cm in transaxial dimensions. It demonstrates a Hounsfield attenuation of 20 and may reflect a lobulated cyst. Nonemergent ultrasound is recommended for further evaluation. Otherwise no new suspicious focal hepatic lesions identified on this noncontrast examination. Left hepatic pneumobilia again seen, unchanged from the prior examination. 2.Diverticula without evidence of diverticulitis. 3.Additional chronic findings as listed. [facility]-[id number] Procedure Note [facility], Radiology Results Incoming - 10/10/2017 5:40 PM [employer] EXAM: CT ABDOMEN PELVIS WO CONTRAST CLINICAL HISTORY: rlq pain TECHNIQUE: Multidetector CT of the abdomen and pelvis was performed without intravenous administration of iodinated contrast with multiplanar reformats. CT scans are performed using radiation dose reduction techniques (iterative reconstruction and/or automated exposure control). Technical factors are evaluated and adjusted to ensure appropriate moderation of exposure. Automated dose management technology is applied to adjust radiation exposure while achieving a diagnostic quality image. COMPARISON: 07/27/2017 FINDINGS: Lung bases: Mild to moderate emphysematous changes with bleb formation identified. Dependent atelectasis is seen. Inferior pleural-based calcifications are again noted, nonspecific but may be reflective of prior asbestos exposure. The distal tip of a cardiac pacemaker lead is identified. Dystrophic calcifications are seen within the aortic valve and mitral valve. No sizable pericardial effusion is present. The visualized esophagus is intact. Liver: Interval enlargement of an exophytic, lobulated lesion along the right lobe of the liver, now measuring up to 3.8 x 2.7 cm in transaxial dimensions. It demonstrates a Hounsfield attenuation of 20 and may reflect a lobulated cyst. Nonemergent ultrasound is recommended for further evaluation. Otherwise no new suspicious focal hepatic lesions identified on this noncontrast examination. Left hepatic pneumobilia again seen, unchanged from the prior examination. Gallbladder: Patient is status post cholecystectomy. Pancreas: Minimal fatty infiltration. No large mass identified on this noncontrast examination. No pancreatic duct dilatation. Spleen: Unremarkable. GI system: Stomach is unremarkable in appearance. Small and large bowel are normal in caliber. Scattered colonic diverticula are identified without evidence of diverticulitis. Appendix is visualized and unremarkable. No free fluid or focal fluid collection seen. No pneumoperitoneum is present. Adrenal glands: Unremarkable. Kidneys: Symmetrical in shape. Bilateral perinephric stranding is again seen, not significantly changed from the prior examination and likely reflective of scarring from prior inflammatory episodes. No large obstructing calculus, hydronephrosis, or hydroureter is seen. Bladder: Unremarkable. Reproductive organs: A few small calcifications are identified within the prostate gland which is mildly enlarged (approximately 5.2 cm transverse dimension (image 136, series 2). Lymph nodes: No enlarged lymph nodes in the abdomen or pelvis. Vascular: Mild atherosclerotic changes of the abdominal aorta and major branch vessels. Evaluation of vessel lumens is limited due to lack of IV contrast. Abdominal wall: Unremarkable. Bones: Scoliotic degenerative changes of the spine are noted. No acute osseous abnormality identified. Evidence for a right femoral intramedullary nish and intertrochanteric locking screw. IMPRESSION: 1. Interval enlargement of right hepatic exophytic lesion , now measuring up to 3.8 x 2.7 cm in transaxial dimensions. It demonstrates a Hounsfield attenuation of 20 and may reflect a lobulated cyst. Nonemergent ultrasound is recommended for further evaluation. Otherwise no new suspicious focal hepatic lesions identified on this noncontrast examination. Left hepatic pneumobilia again seen, unchanged from the prior examination. 2. Diverticula without evidence of diverticulitis. 3. Additional chronic findings as listed. [facility]-[id number] Performing Organization Address City/[facility] Phone Number [facility] [address] [place] [address] Influenza antigen (10/10/2017 3:48 PM) Influenza antigen Negative for Influenza A/B antigen. DEPARTMENT OF PATHOLOGY Comment: AND [employer] MEDICINE, Specimen Information [facility] Specimen Source: [facility] Specimen Site: Not specified Specimen [facility] - Not specified Performing Organization Address City/[facility] Phone Number DEPARTMENT OF PATHOLOGY AND [address] [place] [phone] [facility] Troponin, I-Stat (10/09/2017 9:26 PM) Troponin, I-Stat 0.03 0.00 - 0.08 ng/mL DEPARTMENT OF Comment: PATHOLOGY AND GENOMIC 0.09 - 1.49 ng/mlMay indicate increased risk of acute [facility] coronary syndrome. [facility] >=1.5 ng/mlConsistent with acute myocardial infarction. The diagnostic value of a single normal or non-diagnostic result is questionable.Serial samples at 2-6 hour intervals are required to rule out acute myocardial injury. Specimen Plasma specimen Performing Organization Address City/[facility] [facility] Phone Number DEPARTMENT OF PATHOLOGY AND [address] [place] Prothrombin time with INR, I-Stat (10/09/2017 9:26 PM) POC prothrombin time 21.9 (H) 11.0 - 14.5 sec DEPARTMENT OF PATHOLOGY AND GENOMIC [facility] POC INR 1.9 DEPARTMENT OF Comment: PATHOLOGY AND GENOMIC The International Normalized Ratio (INR) is a [facility] monitoring tool for patients who are stable on oral [facility] vitamin K antagonist therapy. An INR of 2.0-3.0 is suggested for deep vein thrombosis/pulmonary embolism. An INR of 2.5-3.5 (high dose) is suggested for some patients with mechanical heart valves) Specimen Blood Performing Organization Address City/[facility]/Zipcode Phone Number DEPARTMENT OF PATHOLOGY AND [address] [place] [address] Lactic acid, I-Stat (10/09/2017 9:26 PM) Lactic acid, I-Stat 1.1 0.5 - 2.2 mmol/L [facility] Specimen Plasma specimen Performing Organization Address City/[facility] Phone Number DEPARTMENT OF PATHOLOGY AND [address] [place] [address] B natriuretic pep, I-Stat (10/09/2017 9:26 PM) BNP, I-Stat 195 (H) 0 - 100 pg/mL DEPARTMENT OF PATHOLOGY AND GENOMIC [facility] Specimen Blood Performing Organization Address City/[facility] Phone Number DEPARTMENT OF PATHOLOGY AND [address] [place] [address] after 04/21/2017 Insurance Payer Benefit Plan / Group Subscriber ID Type Phone Address MEDICARE MEDICARE PART A AND B xxxxxxxxxx Medicare [place], [place] AARP AARP SUPPLEMENT xxxxxxxxxxx Commercial [phone] [place] [phone]
--- OUTSIDE RECORDS SUMMARY | 2018-04-22 00:04 | XMS REPORT | Clinical Summary ---
:1940 Author Organization [facility] Address [address] [place] [address] Phone Care Team Providers Name Role Phone Unavailable Primary Care Provider Unavailable Allergies No Known Allergies Current Medications Prescription Sig. Disp. Refills Start Date End Date Status clopidogrel (PLAVIX) Take 75 mg by mouth Active 75 mg tablet daily. theophylline Take 100 mg by Active (MONI-24) 100 MG 24 mouth 2 (two) times hr capsule daily. aspirin 81 MG EC Take 81 mg by mouth Active tablet daily. tamsulosin (FLOMAX) Take 0.4 mg by Active 0.4 mg Cp24 24 hr mouth nightly . capsule ranitidine (ZANTAC) Take 150 mg by Active 150 MG tablet mouth nightly. miscellaneous by Miscellaneous Active medical supply Misc route every night as needed. Oxygen 2.5 liters colchicine (COLCRYS) Take 0.6 mg by Active 0.6 mg tablet mouth daily. pantoprazole Take 1 tablet (40 180 tablet 1 02/11/2015 Active (PROTONIX) 40 MG mg total) by mouth tablet 2 (two) times daily. albuterol-ipratropiu Inhale 2 puffs by 1 Inhaler 0 02/12/2015 Active m (COMBIVENT mouth via inhaler RESPIMAT) 20-100 every 6 (six) hours mcg/actuation Aero as needed for inahler Wheezing. HYDROcodone-acetamin Take 1 tablet by Active ophen (NORCO 10-325) mouth every 6 (six) 10-325 mg per tablet hours as needed . albuterol Take 2.5 mg by Active (PROVENTIL) 2.5 mg nebulization every /3 mL (0.083 %) 6 (six) hours as nebulizer solution needed for Wheezing. tiotropium (SPIRIVA) Inhale 18 mcg by Active 18 mcg inhalation mouth via inhaler capsule daily. furosemide (LASIX) Take 40 mg by mouth Active 40 MG tablet daily. FOLIC Take by mouth. Active ACID/MULTIVIT-MIN/LIZETH TEIN (CENTRUM SILVER ORAL) Active Problems Problem Noted Date Inguinal hernia 01/02/2016 Subcutaneous emphysema ([facility]) 10/03/2015 Neck pain on right side 10/02/2015 Acute on chronic systolic congestive heart failure ([facility]) 09/21/2015 Gall stones, common bile duct 02/08/2015 Abdominal pain 02/02/2015 Peripheral vascular disease ([facility]) 07/13/2014 COPD (chronic obstructive pulmonary disease) ([facility]) 07/13/2014 rheumatoid 07/13/2014 Rheumatoid arthritis ([facility]) 07/13/2014 Mitral valve disorders(424.0) 07/13/2014 Bradycardia with 31-40 beats per minute 07/13/2014 Overview: UPDATED BY ICD10 SNOMED/IMO UPDATES Aortic valve disorders 07/13/2014 Near syncope 07/13/2014 Immunizations Name Dates Previously Given Next Due Influenza TIV (IM) 07/16/2014 Family History Medical History Relation Name Comments Diabetes Brother Unremarkable Daughter Diabetes Father Heart disease Father Hypertension Father Cancer Mother Diabetes Mother Hypertension Son Stroke Son Relation Name Status Comments Brother Alive Daughter Alive Father Mother Son Alive Social History Tobacco Use Types Packs/Day Years Used Date Former Smoker 10 26 Quit: 12/20/2003 Smokeless Tobacco: Never Used Alcohol Use Drinks/Week oz/Week Comments Yes 3 Shots of liquor 3.0 2 Glasses of wine Sex Assigned at Date Recorded Not on file Last Filed Vital Signs Not on file Plan of Treatment Health Maintenance Due Date Last Done Comments INFLUENZA VACCINE 06/27/2018 Implants Implanted Type Area Erection Shop Supervisor Device Expiration Model / Identifier Date Serial / Lot Pacemaker,Dual Chamber Rate Responsive Implantable Radio Frequency Accent Dr Narvaez - [id number] Pacemakers [employer] RAO [id number] / Implanted: Qty: 1 on 07/14/2014 by Adali Ness [employer] [id number] / Stent,Pancreatic Set Geenen 5fr 4cm - [id number] Stents-[facility] 06/26/2017 [id number] / Implanted: Qty: 1 on 02/07/2015 by Oxana Hemphill MD eral / [id number] Bard Mesh Right: BARD [employer]ESS 08/24/2020 / Implanted: Qty: 1 on 01/02/2016 by Edin Cobb MD [employer] [id number] / [id number] Results Not on fileafter 04/21/2017
--- NOTE | 2018-04-22 00:44 | EDPHYS ---
Physician Documentation [facility] Name: Thiago Pruitt Age: 77 yrs Sex: Male : 1940 Arrival Date: 04/22/2018 Time: 00:00 Bed 15 Private MD: ED Physician Willam Mcgee HPI: 04/22 00:39 This 77 yrs old Male presents to ER via Ambulatory with complaints of Foreign cp Body In Throat, Difficulty Swallowing. 00:40 The patient presents with a foreign body sensation in the throat, piece of meat. Onset: cp The symptoms/episode began/occurred just prior to arrival. Patient reports he was eating this evening and felt like a piece of meat is stuck in throat. Historical: - Allergies: 00:27 No Known Allergies; tl2 - Home Meds: 00:27 Plavix Oral [Active]; Metoprolol Tartrate Oral [Active]; Digoxin Oral [Active]; Lasix tl2 Oral PRN [Active]; aspirin 81 mg Oral chew 1 tab once daily [Active]; - PMHx: 00:27 COPD; asbestosis; Pacemaker; CHF; tl2 - PSHx: 00:27 Cholecystectomy; tl2 - Immunization history:: Adult Immunizations up to date. - Social history:: Smoking status: Patient/guardian denies using tobacco. - Ebola Screening: : No symptoms or risks identified at this time. ROS: 00:41 Eyes: Negative for injury, pain, redness, and discharge. cp 00:41 Constitutional: Negative for body aches, chills, fever, poor PO intake. 00:41 ENT: Positive for difficulty swallowing, foreign body sensation, Negative for drainage from ear(s), ear pain, sore throat, difficulty handling secretions. 00:41 Cardiovascular: Negative for chest pain, edema, palpitations. 00:41 Respiratory: Negative for shortness of breath, wheezing. 00:41 Abdomen/GI: Negative for abdominal pain, vomiting, diarrhea, constipation. 00:41 Skin: Negative for cellulitis, rash. 00:41 Neuro: Negative for dizziness, headache, weakness. 00:41 All other systems are negative. Exam: 00:42 Constitutional: The patient appears in no acute distress, alert, awake, cp non-diaphoretic, non-toxic, well developed, well nourished. 00:42 Head/Face: Normocephalic, atraumatic. cp 00:42 Eyes: Periorbital structures: appear normal, Conjunctiva: normal, no exudate, no injection, Lids and lashes: appear normal, bilaterally. 00:42 ENT: External ear(s): are unremarkable, Nose: is normal, Mouth: is normal, Posterior pharynx: is normal, airway is patent, no erythema, no exudate. 00:42 Chest/axilla: Inspection: normal, Palpation: is normal, no crepitus, no tenderness. 00:42 Cardiovascular: Rate: normal, Rhythm: regular. 00:42 Respiratory: the patient does not display signs of respiratory distress, Respirations: normal, no retractions, no splinting, no tachypnea, labored breathing, is not present, Breath sounds: decreased breath sounds, that are mild, throughout. 00:42 Abdomen/GI: Inspection: abdomen appears normal, Palpation: abdomen is soft and non-tender, in all quadrants. 00:42 Skin: cellulitis, is not appreciated, no rash present. 00:42 Neuro: Orientation: to person, place \T\ time. Mentation: lucid, able to follow commands, Cerebellar function: is grossly normal, Motor: moves all fours, strength is normal, Sensation: no obvious gross deficits. Vital Signs: 00:27 BP 119 / 80; Pulse 70; Resp 20; Temp 98.1(O); Pulse Ox 98% on 2 lpm NC; Weight 72.57 tl2 kg; Height 5 ft. 8 in. (172.72 cm); Pain 0/10; 00:27 Body Mass Index 24.33 (72.57 kg, 172.72 cm) tl2 MDM: 00:39 Patient medically screened. cp 00:40 Differential diagnosis: retained esophageal foreign body, tracheal foreign body, cp aspirated foreign body. 00:43 Data reviewed: vital signs, nurses notes, and as a result, I will discharge patient. cp 00:43 ED course: Patient reports while in ED he felt like he swallowed piece of meat and cp symptoms have resolved. Administered Medications: No medications were administered Disposition: 04/22/18 00:43 Discharged to Home. Impression: Foreign body in esophagus - Resolved. - Condition is Stable. - Discharge Instructions: Swallowed Foreign Body, Adult. - Medication Reconciliation Form, Thank You Letter, Antibiotic Education, Prescription Opioid Use form. - Follow up: Juan Diego Arroyo MD; When: 2 - 3 days; Reason: Recheck today's complaints. - Problem is new. - Symptoms are resolved. Addendum: 04/26/2018 20:23 Co-signature as Attending Physician, Willam Mcgee MD I agree with the assessment and w a plan of care. Signatures: Mark Rubio PA PA Helen Mariano, RN RN tl2 Willam Mcgee MD MD wa Davies, Jonathon RN RN jd3 Corrections: (The following items were deleted from the chart) 04/22 00:47 00:43 04/22/2018 00:43 Discharged to Home. Impression: Foreign body in esophagus - cp Resolved. Condition is Stable. Forms are Medication Reconciliation Form, Thank You Letter, Antibiotic Education, Prescription Opioid Use. Follow up: Emergency Department; When: As needed; Reason: Worsening of condition. Problem is new. Symptoms are resolved. cp 00:55 00:47 04/22/2018 00:43 Discharged to Home. Impression: Foreign body in esophagus - jd3 Resolved. Condition is Stable. Discharge Instructions: Swallowed Foreign Body, Adult. Forms are Medication Reconciliation Form, Thank You Letter, Antibiotic Education, Prescription Opioid Use. Follow up: Juan Diego Arroyo; When: 2 - 3 days; Reason: Recheck today's complaints. Problem is new. Symptoms are resolved. cp
--- NOTE | 2018-04-22 00:44 | ER ---
Nurse's Notes [facility] Name: Thiago Pruitt Age: 77 yrs Sex: Male : 1940 Arrival Date: 04/22/2018 Time: 00:00 Bed 15 Private MD: Diagnosis: Foreign body in esophagus-Resolved Presentation: 04/22 00:22 Presenting complaint: Patient states: I have a piece of meat stuck in my throat, I was tl2 eating fast and didn't chew very good. No breathing difficulty and talking easily. Transition of care: patient was not received from another setting of care. Onset of symptoms was April 21, 2018 at 23:30. Risk Assessment: Do you want to hurt yourself or someone else? Patient reports no desire to harm self or others. Initial Sepsis Screen: Does the patient meet any 2 criteria? No. Patient's initial sepsis screen is negative. Does the patient have a suspected source of infection? No. Patient's initial sepsis screen is negative. Care prior to arrival: None. 00:22 Method Of Arrival: Ambulatory tl2 00:22 Acuity: CHEIKH 3 tl2 Triage Assessment: : General: Appears in no apparent distress. uncomfortable, Behavior is calm, cooperative, tl2 appropriate for age. Pain: Denies pain. Respiratory: Airway is patent Respiratory effort is even, unlabored, Respiratory pattern is regular, symmetrical. Historical: - Allergies: 00: No Known Allergies; tl2 - Home Meds: 00:27 Plavix Oral [Active]; Metoprolol Tartrate Oral [Active]; Digoxin Oral [Active]; Lasix tl2 Oral PRN [Active]; aspirin 81 mg Oral chew 1 tab once daily [Active]; - PMHx: 00:27 COPD; asbestosis; Pacemaker; CHF; tl2 - PSHx: 00:27 Cholecystectomy; tl2 - Immunization history:: Adult Immunizations up to date. - Social history:: Smoking status: Patient/guardian denies using tobacco. - Ebola Screening: : No symptoms or risks identified at this time. Screenin:27 Abuse screen: Denies threats or abuse. Nutritional screening: No deficits noted. jd3 Tuberculosis screening: No symptoms or risk factors identified. Fall Risk Ambulatory Aid- None/Bed Rest/Nurse Assist (0 pts). Gait- Normal/Bed Rest/Wheelchair (0 pts) Mental Status- Oriented to own ability (0 pts). Total Stark Fall Scale indicates No Risk (0-24 pts). Assessment: 00:24 General: Appears uncomfortable, Behavior is cooperative, appropriate for age, anxious, jd3 Reports he has a piece of meat stuck in his throat. Pain: Denies pain. Neuro: Level of Consciousness is awake, alert, obeys commands, Oriented to person, place, time, situation, Appropriate for age. Cardiovascular: Heart tones S1 S2 present Capillary refill < 3 seconds Patient's skin is warm and dry. Respiratory: Reports shortness of breath Airway is patent Respiratory effort is even, labored, Respiratory pattern is regular, symmetrical, Breath sounds with wheezes bilaterally. GI: Abdomen is round Abd is soft and non tender X 4 quads. Patient currently denies nausea, vomiting. : No signs and/or symptoms were reported regarding the genitourinary system. EENT: No signs and/or symptoms were reported regarding the EENT system. Derm: Skin is intact, Skin is dry, Skin is normal, Skin temperature is warm. Musculoskeletal: Circulation, motion, and sensation intact. Range of motion: intact in all extremities. 00:53 Reassessment: Patient appears in no apparent distress at this time. Patient and/or jd3 family updated on plan of care and expected duration. Pain level reassessed. Patient is alert, oriented x 3, equal unlabored respirations, skin warm/dry/pink. pt reporting dislodging food bolus with water. reported understanding of discharge instructions, pt reported even and unlabored respirations. Vital Signs: 00:27 BP 119 / 80; Pulse 70; Resp 20; Temp 98.1(O); Pulse Ox 98% on 2 lpm NC; Weight 72.57 tl2 kg; Height 5 ft. 8 in. (172.72 cm); Pain 0/10; 00:27 Body Mass Index 24.33 (72.57 kg, 172.72 cm) tl2 ED Course: 00:00 Patient arrived in ED. ds1 00:22 Gary De Guzman, RN is Primary Nurse. jd3 00:24 Triage completed. tl2 00:27 Patient has correct armband on for positive identification. Bed in low position. Call jd3 light in reach. Side rails up X 1. Adult w/ patient. 00:27 Arm band placed on. jd3 00:36 Mark Rubio PA is PHCP. cp 00:36 Willam Mcgee MD is Attending Physician. cp 00:47 Juan Diego Arroyo MD is Referral Physician. cp 00:53 No provider procedures requiring assistance completed. Patient did not have IV access jd3 during this emergency room visit. Administered Medications: No medications were administered Outcome: 00:43 Discharge ordered by MD. cp 00:54 Discharged to home ambulatory, with family. jd3 00:54 Condition: stable 00:54 Discharge instructions given to patient, family, Instructed on discharge instructions, follow up and referral plans. Demonstrated understanding of instructions, follow-up care. 00:55 Patient left the ED. jd3 Signatures: Sadie Scott ds1 Mark Rubio PA PA cp Helen Nazario, RN RN tl2 Gary De Guzman RN RN jd3
[2018-04-22 00:59] VITALS: BP 119/80; TEMP 98.1; O2SAT 98
== END 2018-04-22 00:55 | disposition home or self-care (01) ==
LOC: ER 23:58
DX: T18.108A Unspecified foreign body in esophagus causing other injury, initial encounter (principal); X58.XXXA Exposure to other specified factors, initial encounter; Y93.89 Activity, other specified; Y92.9 Unspecified place or not applicable; J44.9 Chronic obstructive pulmonary disease, unspecified; J61 Pneumoconiosis due to asbestos and other mineral fibers; Z95.0 Presence of cardiac pacemaker; I50.9 Heart failure, unspecified
CPT/HCPCS: 99281

== ENCOUNTER 2018-06-03 11:13 | Emergency (ER) | payer OTHER, MEDICARE ==
--- OUTSIDE RECORDS SUMMARY | 2018-06-03 11:17 | XMS REPORT | Clinical Summary ---
:1940 Author Organization [facility] Address [address] [place] [address] Care Team Providers Name Role Phone Marcello Gary MD Primary Care Provider Allergies No Known Allergies Current Medications Prescription Sig. Disp. Refills Start End Date Status Date albuterol (ACCUNEB) Take 2.5 mg by Active 2.5 mg /3 mL (0.083 nebulization 4 %) nebulizer (four) times a solution day as needed for wheezing or shortness of breath. albuterol (PROAIR Inhale 2 puffs Active HFA) 90 every 6 (six) mcg/actuation hours as needed inhaler for wheezing or shortness of breath. aspirin (ECOTRIN) Take 81 mg by Active 81 MG enteric mouth every coated tablet morning. budesonide-formoter Inhale 2 puffs 2 Active ol (SYMBICORT) (two) times a 160-4.5 day. mcg/actuation inhaler clopidogrel Take 75 mg by Active (PLAVIX) 75 mg mouth every tablet morning. colchicine 0.6 mg Take 0.6 mg by Active tablet mouth daily as needed (for Gout Flare ups). digOXIN (LANOXIN) Take 125 mcg by Active 125 mcg tablet mouth every morning. folic Take 1 tablet by Active acid/multivit-min/l mouth every utein (CENTRUM morning. SILVER ORAL) HYDROcodone-acetami Take 1 tablet by Active nophen (NORCO) mouth every 6 10-325 mg per (six) hours as tablet needed for moderate pain. ipratropium Take 500 mcg by Active (ATROVENT) 0.02 % nebulization 4 nebulizer solution (four) times a day as needed for wheezing or shortness of breath. pantoprazole Take 40 mg by Active (PROTONIX) 40 MG EC mouth 2 (two) tablet times a day. ranitidine (ZANTAC) Take 75-150 mg by Active 15 mg/mL syrup mouth daily as needed for heartburn. tamsulosin (FLOMAX) Take 0.4 mg by Active 0.4 mg capsule mouth nightly. theophylline Take 100 mg by Active (THEODUR) 100 MG 12 mouth 2 (two) hr tablet times a day. tiotropium Place 1 capsule Active (SPIRIVA) 18 mcg into inhaler and per inhalation inhale once capsule daily. LEVALBUTEROL HCL Inhale 1 vial Active INHL daily as needed. (Does not use with Albuterol & Ipratropium) meloxicam (MOBIC) Take 1 tablet (15 15 tablet 0 06/13/20 Active 15 mg tablet mg total) by 8 18 mouth daily for 15 doses. clopidogrel Take 75 mg by 01/14/20 Discontinued (PLAVIX) 75 mg mouth daily. 18 tablet digOXIN (DIGOX) 125 Take 125 mcg by 04/27/20 Discontinued mcg tablet mouth daily. 18 furosemide (LASIX) Take 40 mg by 01/09/20 Discontinued 40 MG tablet mouth daily as 18 needed (for leg swelling). HYDROcodone-acetami Take 1 tablet by 04/27/20 Discontinued nophen (NORCO mouth every 6 18 10-325) 10-325 mg (six) hours as per tablet needed for moderate pain. lisinopril Take 2.5 mg by 10/18/19 Discontinued (PRINIVIL,ZESTRIL) mouth 2 (two) 18 2.5 MG tablet times a day. metoprolol tartrate Take 25 mg by 10/15/19 Discontinued (LOPRESSOR) 25 MG mouth 2 (two) 18 tablet times a day. tamsulosin (FLOMAX) Take 0.4 mg by 04/27/20 Discontinued 0.4 mg mouth nightly. 18 capsule,extended release 24hr theophylline Take 100 mg by 04/27/20 Discontinued (THEODUR) 100 MG 12 mouth every 12 18 hr tablet (twelve) hours. tiotropium Place 1 capsule 04/27/20 Discontinued (SPIRIVA) 18 mcg into inhaler and 18 per inhalation inhale once capsule daily. albuterol (ACCUNEB) Take 1 ampule by 11/07/19 Discontinued 1.25 mg/3 mL nebulization 18 nebulizer solution every 6 (six) hours as needed for wheezing or shortness of breath. aspirin (ECOTRIN) Take 81 mg by 04/27/20 Discontinued 81 MG enteric mouth daily. 18 coated tablet B-complex with Take 1 tablet by 11/07/19 Discontinued vitamin C tablet mouth daily. 18 colchicine 0.6 mg Take 0.6 mg by 04/27/20 Discontinued tablet mouth daily as 18 needed for muscle/joint pain (gout flare). spironolactone Take 25 mg by 07/27/20 Discontinued [...] 18 tablet mouth daily for 3 days. FOLIC Take 1 tablet by 04/27/20 Discontinued ACID/MULTIVIT-MIN/L mouth daily. 18 UTEIN (CENTRUM SILVER ORAL) albuterol (PROAIR Inhale 2 puffs 04/27/20 Discontinued HFA,PROVENTIL every 6 (six) 18 HFA,VENTOLIN HFA) hours as needed 90 mcg/actuation for wheezing or inhaler shortness of breath. BUDESONIDE/FORMOTER Inhale 2 puffs 11/07/19 Discontinued OL FUMARATE daily. 18 (SYMBICORT INHL) predniSONE Take 10 mg by 11/11/19 Discontinued (DELTASONE) 10 mg mouth daily. 18 tablet budesonide-formoter Inhale 2 puffs 2 04/27/20 Discontinued ol (SYMBICORT) (two) times a 18 160-4.5 day. mcg/actuation inhaler ipratropium Take 500 mcg by 04/27/20 Discontinued (ATROVENT) 0.02 % nebulization 4 18 nebulizer solution (four) times a day. albuterol (ACCUNEB) Take 2.5 mg by 04/27/20 Discontinued 2.5 mg /3 mL (0.083 nebulization 4 18 %) nebulizer (four) times a solution day. nystatin Take 5 mL by 140 mL [...] 8 18 mouth daily for 30 days. rivaroxaban Take 20 mg by 04/27/20 Discontinued (XARELTO) 20 mg mouth. 18 tablet pantoprazole Take 40 mg by 04/27/20 Discontinued (PROTONIX) 40 MG EC mouth 2 (two) 18 tablet times a day. clopidogrel 04/27/20 Discontinued (PLAVIX) 75 mg 8 18 tablet metoprolol 3 04/27/20 Discontinued succinate XL 8 18 (TOPROL-XL) 25 mg 24 hr tablet ranitidine (ZANTAC) 04/27/20 Discontinued 15 mg/mL syrup 8 18 metoprolol Take 25 mg by 04/30/20 Discontinued succinate XL mouth every 18 (TOPROL-XL) 25 mg morning. 24 hr tablet metoprolol Take 1 tablet (50 30 tablet 0 05/30/20 succinate XL mg total) by 8 18 (TOPROL-XL) 50 mg mouth every 24 hr tablet morning for 30 days. levoFLOXacin Take 1 tablet 7 tablet 0 05/06/20 (LEVAQUIN) 500 MG (500 mg total) by 8 18 tablet mouth daily for 7 days. predniSONE Take 1erug6t, 50 tablet 0 05/13/20 (DELTASONE) 10 mg [id number], 2 8 18 tablet tabx3d, 1 tab daily 3 days then stop Active Problems Problem Noted Date Chest pain 01/08/2018 Dysphagia 12/23/2017 Overview: Added automatically from request for surgery [id number] COPD exacerbation 12/10/2017 Pacemaker 10/14/2017 Acute exacerbation of COPD with asthma 10/13/2017 COPD with acute exacerbation 10/13/2017 Generalized abdominal pain 04/21/2016 Chronic diastolic CHF (congestive heart failure) 04/06/2016 COPD with exacerbation 04/05/2016 COPD (chronic obstructive pulmonary disease) 03/22/2016 Carotid artery disease 03/22/2016 Hypertension 03/22/2016 Gout 03/22/2016 Anemia 03/22/2016 Asbestosis 03/22/2016 Alejo esophagus Diverticulosis Hiatal hernia Gall stone Encounters Date Type Specialty Care Team Description 05/29/20 Emergency Emergency Medicine Rosemary, Skin ulcer of face, 18 MD Juan unspecified ulcer stage (Primary Dx) 04/27/20 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); 18 John Dysphagia, unspecified type MD Sabine 02/01/20 Documentation Gastroenterology Jorge, 18 Octavia, CARLOS 01/14/20 Hospital Radiology Patrick, Dysphagia, unspecified type 18 Encounter John Regalado MD 01/14/20 Office Visit Gastroenterology Patrick, Dysphagia, unspecified type 18 John (Primary Dx) MD Sabine 01/14/20 Documentation Gastroenterology Patel, 18 Octavia, CARLOS 01/08/20 Emergency Cardiology Gokal, Chest pain, unspecified type (Primary Dx); 18 - Hasan Exertional dyspnea 01/09/20 MD Zack 18 Marcelina Gutiérrez MD Bryant, Ronald, MD Neason, Chau L., MD 01/06/20 Patient Outreach Quality Aviva Phillip RN 12/29/19 Anesthesia Event Gastroenterology Aviva Priest MD 12/29/19 Procedure Pass Gastroenterology 18 12/29/19 Surgery Gastroenterology Kanchan, ESOPHAGOGASTRODUODENOSCOPY 18 Oxana Velásquez MD (EGD) 12/24/19 [facility] Internal [facility], COPD exacerbation (Primary Dx); 18 - Encounter Medicine Lorenza Chest pain, unspecified type; 01/06/20 MD Yolanda Dyspnea on exertion; 18 Giveon, Dysphagia, unspecified type MD Jennyfer Mayberry Chau L., MD 12/11/19 [facility] Internal [facility], Acute respiratory distress ( Primary Dx); 18 - Encounter Medicine MD Juan COPD exacerbation 12/16/19 Gladys Hemphill MD 11/07/19 [facility], COPD with acute exacerbation ( Primary Dx); 18 - Encounter Medicine MD Kip Hypoxia; 11/11/19 Rigoberto Murphy Peripheral cyanosis Aviva Velásquez MD 10/15/19 Refill Internal Medicine Aviva Burnett MD 10/13/19 [facility], Acute exacerbation of COPD with asthma (Primary Dx); 18 - Encounter Medicine MD Kip COPD with acute exacerbation 10/18/19 Aviva Garza MD Ogbonna, Martina C., MD 10/10/19 Emergency Emergency Medicine Shaun Villar Chronic abdominal pain Aviva Cabrera MD (Primary Dx) 10/09/19 Emergency Emergency Medicine Meño, Shortness of breath ( Primary Dx); 18 Aaron Chronic generalized abdominal pain; Jonathon, DO Prerenal azotemia 07/27/20 Emergency Emergency Medicine Srinivasa, Chronic abdominal pain ( Primary Dx); 17 Kwabena Martinez, DO Intra-abdominal adhesions 06/15/20 Office Visit Gastroenterology Patrick, Hiatal hernia (Primary Dx); 17 John 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; MD Sabine Generalized abdominal pain; Calculus of gallbladder without cholecystitis without obstruction; Diverticulosis of intestine without bleeding, unspecified intestinal tract location after 06/02/2017 Family History Medical History Relation Name Comments [...] Vital Sign Reading Time Taken Blood Pressure 138/67 05/29/2018 6:03 PM CDT Pulse 63 05/29/2018 6:03 PM CDT Temperature 35.8 C (96.5 F) 05/29/2018 6:03 PM CDT Respiratory Rate 20 05/29/2018 6:03 PM CDT Oxygen Saturation 93% 05/29/2018 6:03 PM CDT Inhaled Oxygen Concentration - - Weight 68.5 kg (151 lb) 01/31/2018 12:44 PM CDT Height 172.7 cm (5' 8") 05/29/2018 6:05 PM CDT Body Mass Index 22.96 01/31/2018 12:44 PM CDT Plan of Treatment Health Maintenance Due Date Last Done Comments SHINGRIX VACCINE (#1) 12/17/1991 ZOSTER VACCINE 2001 PNEUMOCOCCAL POLYSACCHARIDE VACCINE AGE 65 AND OVER 2006 PNEUMOCOCCAL-13 2006 INFLUENZA VACCINE 04/27/2018 Implants Implanted Type Area Settlement Technician Device Expiration Date Model / Identifier Serial / Lot Pacemaker Pacemaker Pacemaker Nish Right Hip Pacemaker Procedures Procedure Name Priority Date/Time Associated Comments Diagnosis ESTIMATED GFR Routine 04/30/2018 Results for 4:56 AM CDT this procedure are in the results section. HC COMPLETE BLD COUNT W/AUTO Routine 04/30/2018 Results for DIFF 4:56 AM CDT this procedure are in the results section. BASIC METABOLIC PANEL Routine 04/30/2018 Results for 4:56 AM CDT this procedure are in the results section. ESTIMATED GFR Routine 04/29/2018 Results for 5:00 AM CDT this procedure are in the results section. HC COMPLETE BLD COUNT W/AUTO Routine 04/29/2018 Results for DIFF 5:00 AM CDT this procedure are in the results section. BASIC METABOLIC PANEL Routine 04/29/2018 Results for 5:00 AM CDT this procedure are in the results section. ESTIMATED GFR Routine 04/28/2018 Results for 3:45 AM CDT this procedure are in the results section. HC COMPLETE BLD COUNT W/AUTO Routine 04/28/2018 Results for DIFF 3:45 AM CDT this procedure are in the results section. BASIC METABOLIC PANEL Routine 04/28/2018 Results for 3:45 AM CDT this procedure are in the results section. CT ANGIOGRAM PE CHEST STAT 04/27/2018 Results for 9:18 PM CDT this procedure are in the results section. TROPONIN Timed 04/27/2018 Results for 4:25 PM CDT this procedure are in the results section. VENOUS BLOOD GAS STAT 04/27/2018 Results for 2:01 PM CDT this procedure are in the results section. ESTIMATED GFR STAT 04/27/2018 Results for 1:45 PM CDT this procedure are in the results section. DIGOXIN LEVEL STAT 04/27/2018 Results for 1:45 PM CDT this procedure are in the results section. B NATRIURETIC PEPTIDE STAT 04/27/2018 Results for 1:45 PM CDT this procedure are in the results section. TROPONIN STAT 04/27/2018 Results for 1:45 PM CDT this procedure are in the results section. CREATINE KINASE, TOTAL (CPK) STAT 04/27/2018 Results for 1:45 PM CDT this procedure are in the results section. COMPREHENSIVE METABOLIC PANEL STAT 04/27/2018 Results for 1:45 PM CDT this procedure are in the results section. PARTIAL THROMBOPLASTIN TIME STAT 04/27/2018 Results for (PTT) 1:45 PM CDT this procedure are in the results section. PROTHROMBIN TIME WITH INR STAT 04/27/2018 Results for 1:45 PM CDT this procedure are in the results section. HC COMPLETE BLD COUNT W/AUTO STAT 04/27/2018 Results for DIFF 1:45 PM CDT this procedure are in the results section. ECG ED PRELIMINARY Routine 04/27/2018 Results for INTERPRETATION 1:00 PM CDT this procedure are in the results section. XR CHEST 2 VW STAT 04/27/2018 Results for 12:53 PM CDT this procedure are in the results section. RESPIRATORY PATHOGEN PANEL Routine 04/27/2018 Results for 12:43 PM CDT this procedure are in the results section. ECG 12-LEAD STAT 04/27/2018 Results for 12:14 PM CDT this procedure are in the results section. FL ESOPHAGRAM COMPLETE Routine 01/13/2018 Dysphagia, Results [...] GLUCOSE Routine 11/09/2017 Results for 8:28 AM WIRE TWISTING MACHINE OPERATOR this procedure are in the results section. ECG 12-LEAD STAT 11/08/2017 Results for 10:32 AM WIRE TWISTING MACHINE OPERATOR this procedure are in the results section. CT ANGIOGRAM PE CHEST STAT 11/07/2017 Results for 10:29 PM WIRE TWISTING MACHINE OPERATOR this procedure are in the results section. ARTERIAL BLOOD GAS STAT 11/07/2017 Results for 7:20 PM WIRE TWISTING MACHINE OPERATOR this procedure are in the results section. ECG ED PRELIMINARY Routine 11/07/2017 Results for INTERPRETATION 6:00 PM WIRE TWISTING MACHINE OPERATOR this procedure are in the results section. DE CRITICAL CARE, E/M 30-74 Routine 11/07/2017 Results for MINUTES 6:00 PM WIRE TWISTING MACHINE OPERATOR this procedure are in the results section. ESTIMATED GFR Routine 11/07/2017 Results for 4:25 PM WIRE TWISTING MACHINE OPERATOR this procedure are in the results section. B NATRIURETIC PEPTIDE Routine 11/07/2017 Results for 4:25 PM WIRE TWISTING MACHINE OPERATOR this procedure are in the results section. COMPREHENSIVE METABOLIC PANEL Routine 11/07/2017 Results for 4:25 PM WIRE TWISTING MACHINE OPERATOR this procedure are in the results section. HC COMPLETE BLD COUNT W/AUTO Routine 11/07/2017 Results for DIFF 4:25 PM WIRE TWISTING MACHINE OPERATOR this procedure are in the results section. BLOOD CULTURE, AEROBIC & Routine 11/07/2017 Results for ANAEROBIC 4:25 PM WIRE TWISTING MACHINE OPERATOR this procedure are in the results section. BLOOD CULTURE, AEROBIC & Routine 11/07/2017 Results for ANAEROBIC 4:25 PM WIRE TWISTING MACHINE OPERATOR this procedure are in the results section. XR CHEST 2 VW STAT 11/07/2017 Results for 3:16 PM WIRE TWISTING MACHINE OPERATOR this procedure are in the results section. ECG 12-LEAD STAT 11/07/2017 Results for 3:12 PM WIRE TWISTING MACHINE OPERATOR this procedure are in the results section. MANUAL DIFFERENTIAL Routine 10/18/2017 Results for 5:00 AM WIRE TWISTING MACHINE OPERATOR this procedure are in the results section. CBC WITH PLATELET AND Routine 10/18/2017 Results for DIFFERENTIAL 5:00 AM WIRE TWISTING MACHINE OPERATOR this procedure are in the results section. ESTIMATED GFR Routine 10/18/2017 Results for 4:00 AM WIRE TWISTING MACHINE OPERATOR this procedure are in the results section. BASIC METABOLIC PANEL Routine 10/18/2017 Results for 4:00 AM WIRE TWISTING MACHINE OPERATOR this procedure are in the results section. ESTIMATED GFR Routine 10/17/2017 Results for 5:17 AM WIRE TWISTING MACHINE OPERATOR this procedure are in the results section. HC COMPLETE BLD COUNT W/AUTO Routine 10/17/2017 Results for DIFF 5:17 AM WIRE TWISTING MACHINE OPERATOR this procedure are in the results section. BASIC METABOLIC PANEL Routine 10/17/2017 Results for 5:17 AM WIRE TWISTING MACHINE OPERATOR this procedure are in the results section. ESTIMATED GFR Routine 10/16/2017 Results for 5:00 AM WIRE TWISTING MACHINE OPERATOR this procedure are in the results section. BASIC METABOLIC PANEL Routine 10/16/2017 Results for 5:00 AM WIRE TWISTING MACHINE OPERATOR this procedure are in the results section. HC COMPLETE BLD COUNT W/AUTO Routine 10/16/2017 Results for DIFF 5:00 AM WIRE TWISTING MACHINE OPERATOR this procedure are in the results section. DE CRITICAL CARE, E/M 30-74 Routine 10/15/2017 Results for MINUTES 12:01 PM WIRE TWISTING MACHINE OPERATOR this procedure are in the results section. ESTIMATED GFR Routine 10/15/2017 Results for 4:50 AM WIRE TWISTING MACHINE OPERATOR this procedure are in the results section. BASIC METABOLIC PANEL Routine 10/15/2017 Results for 4:50 AM WIRE TWISTING MACHINE OPERATOR this procedure are in the results section. HC COMPLETE BLD COUNT W/AUTO Routine 10/15/2017 Results for DIFF 4:50 AM WIRE TWISTING MACHINE OPERATOR this procedure are in the results section. XR CHEST 2 VW Routine 10/14/2017 Results for 5:15 PM WIRE TWISTING MACHINE OPERATOR this procedure are in the results section. ESTIMATED GFR Timed 10/14/2017 Results for 4:00 PM WIRE TWISTING MACHINE OPERATOR this procedure are in the results section. BASIC METABOLIC PANEL Timed 10/14/2017 Results for 4:00 PM WIRE TWISTING MACHINE OPERATOR this procedure are in the results section. ECG 12-LEAD STAT 10/14/2017 Results for 10:37 AM WIRE TWISTING MACHINE OPERATOR this procedure are in the results section. POC GLUCOSE Routine 10/14/2017 Results for 9:39 AM WIRE TWISTING MACHINE OPERATOR this procedure are in the results section. ECHOCARDIOGRAM 2D COMPLETE W Routine 10/14/2017 Results for MMODE SPECTRAL COLOR DOPPLER 9:12 AM WIRE TWISTING MACHINE OPERATOR this procedure ([id number]) are in the results section. HEMOGLOBIN A1C Routine 10/14/2017 Results for 5:00 AM WIRE TWISTING MACHINE OPERATOR this procedure are in the results section. ESTIMATED GFR Routine 10/14/2017 Results for 5:00 AM WIRE TWISTING MACHINE OPERATOR this procedure are in the results section. T4, FREE Routine 10/14/2017 Results for 5:00 AM WIRE TWISTING MACHINE OPERATOR this procedure are in the results section. THYROID STIMULATING HORMONE Routine 10/14/2017 Results for 5:00 AM WIRE TWISTING MACHINE OPERATOR this procedure are in the results section. LIPID PANEL Routine 10/14/2017 Results for 5:00 AM WIRE TWISTING MACHINE OPERATOR this procedure are in the results section. PHOSPHORUS LEVEL Routine 10/14/2017 Results for 5:00 AM WIRE TWISTING MACHINE OPERATOR this procedure are in the results section. MAGNESIUM LEVEL Routine 10/14/2017 Results for 5:00 AM WIRE TWISTING MACHINE OPERATOR this procedure are in the results section. HEPATIC FUNCTION PANEL Routine 10/14/2017 Results for 5:00 AM WIRE TWISTING MACHINE OPERATOR this procedure are in the results section. CREATINE KINASE, TOTAL (CPK) Routine 10/14/2017 Results for 5:00 AM WIRE TWISTING MACHINE OPERATOR this procedure are in the results section. BASIC METABOLIC PANEL Routine 10/14/2017 Results for 5:00 AM WIRE TWISTING MACHINE OPERATOR this procedure are in the results section. HC COMPLETE BLD COUNT W/AUTO Routine 10/14/2017 Results for DIFF 5:00 AM WIRE TWISTING MACHINE OPERATOR this procedure are in the results section. RESPIRATORY PATHOGEN PANEL Routine 10/14/2017 Results for 12:00 AM WIRE TWISTING MACHINE OPERATOR this procedure are in the results section. XR ABDOMEN 1 VW PORTABLE Routine 10/13/2017 Results for 8:31 PM WIRE TWISTING MACHINE OPERATOR this procedure are in the results section. DIGOXIN LEVEL Timed 10/13/2017 Results for 8:23 PM WIRE TWISTING MACHINE OPERATOR this procedure are in the results section. TROPONIN Timed 10/13/2017 Results for 8:23 PM WIRE TWISTING MACHINE OPERATOR this procedure are in the results section. RESPIRATORY PATHOGEN PANEL Routine 10/13/2017 Results for 7:20 PM WIRE TWISTING MACHINE OPERATOR this procedure are in the results section. ARTERIAL BLOOD GAS Routine 10/13/2017 Results for 6:40 PM WIRE TWISTING MACHINE OPERATOR this procedure are in the results section. XR CHEST 1 VW PORTABLE STAT 10/13/2017 Results for 6:01 PM WIRE TWISTING MACHINE OPERATOR this procedure are in the results section. ECG 12-LEAD STAT 10/13/2017 Results for 4:55 PM WIRE TWISTING MACHINE OPERATOR this procedure are in the results section. BLOOD CULTURE, AEROBIC & Routine 10/13/2017 Results for ANAEROBIC 4:50 PM WIRE TWISTING MACHINE OPERATOR this procedure are in the results section. ESTIMATED GFR STAT 10/13/2017 Results for 4:45 PM WIRE TWISTING MACHINE OPERATOR this procedure are in the results section. B NATRIURETIC PEPTIDE STAT 10/13/2017 Results for 4:45 PM WIRE TWISTING MACHINE OPERATOR this procedure are in the results section. TROPONIN STAT 10/13/2017 Results for 4:45 PM WIRE TWISTING MACHINE OPERATOR this procedure are in the results section. COMPREHENSIVE METABOLIC PANEL STAT 10/13/2017 Results for 4:45 PM WIRE TWISTING MACHINE OPERATOR this procedure are in the results section. HC COMPLETE BLD COUNT W/AUTO STAT 10/13/2017 Results for DIFF 4:45 PM WIRE TWISTING MACHINE OPERATOR this procedure are in the results section. CT ABDOMEN PELVIS WO CONTRAST STAT 10/10/2017 Results for 5:22 PM WIRE TWISTING MACHINE OPERATOR this procedure are in the results section. INFLUENZA ANTIGEN Routine 10/10/2017 Results for 3:48 PM WIRE TWISTING MACHINE OPERATOR this procedure are in the results section. MANUAL DIFFERENTIAL STAT 10/10/2017 Results for 3:44 PM WIRE TWISTING MACHINE OPERATOR this procedure are in the results section. ESTIMATED GFR STAT 10/10/2017 Results for 3:44 PM WIRE TWISTING MACHINE OPERATOR this procedure are in the results section. COMPREHENSIVE METABOLIC PANEL STAT 10/10/2017 Results for 3:44 PM WIRE TWISTING MACHINE OPERATOR this procedure are in the results section. CBC WITH PLATELET AND STAT 10/10/2017 DIFFERENTIAL 3:44 PM WIRE TWISTING MACHINE OPERATOR ECG ED PRELIMINARY Routine 10/09/2017 Results for INTERPRETATION 10:56 PM WIRE TWISTING MACHINE OPERATOR this procedure are in the results section. ECG 12-LEAD STAT 10/09/2017 Results for 9:39 PM WIRE TWISTING MACHINE OPERATOR this procedure are in the results section. MANUAL DIFFERENTIAL STAT 10/09/2017 Results for 9:26 PM WIRE TWISTING MACHINE OPERATOR this procedure are in the results section. ESTIMATED GFR STAT 10/09/2017 Results for 9:26 PM WIRE TWISTING MACHINE OPERATOR this procedure are in the results section. PROTHROMBIN TIME WITH INR, STAT 10/09/2017 Results for I-STAT 9:26 PM WIRE TWISTING MACHINE OPERATOR this procedure are in the results section. CBC WITH PLATELET AND STAT 10/09/2017 Results for DIFFERENTIAL 9:26 PM WIRE TWISTING MACHINE OPERATOR this procedure are in the results section. B NATRIURETIC PEP, I-STAT STAT 10/09/2017 Results for 9:26 PM WIRE TWISTING MACHINE OPERATOR this procedure are in the results section. TROPONIN, I-STAT STAT 10/09/2017 Results for 9:26 PM WIRE TWISTING MACHINE OPERATOR this procedure are in the results section. CREATINE KINASE, TOTAL (CPK) STAT 10/09/2017 Results for 9:26 PM WIRE TWISTING MACHINE OPERATOR this procedure are in the results section. LACTIC ACID, I-STAT STAT 10/09/2017 Results for 9:26 PM WIRE TWISTING MACHINE OPERATOR this procedure are in the results section. COMPREHENSIVE METABOLIC PANEL STAT 10/09/2017 Results for 9:26 PM WIRE TWISTING MACHINE OPERATOR this procedure are in the results section. XR CHEST 1 VW PORTABLE STAT 10/09/2017 Results for 9:18 PM WIRE TWISTING MACHINE OPERATOR this procedure are in the results section. CT ABDOMEN PELVIS WO CONTRAST STAT 07/27/2017 Results for 9:39 PM CDT this procedure are in the results section. after 06/02/2017 Results Estimated GFR (04/30/2018 4:56 AM)Only the most recent of31 resultswithin the time period is included. GFR Non Af Amer 82 mL/min/1.73 m2 [facility] OF PATHOLOG[facility]OMIC [facility]ICINE GFR Af Amer >90 mL/min/1.73 m2 [facility] DEPART[facility] OF Comment: PATHOLOGY AND GENOMIC Chronic [...] Americans. Specimen Plasma specimen Performing Organization Address City/State/Zipcode Phone Number [facility] DEPART[facility] OF PATHOLOGY AND [address] [place] [address] [facility] CBC with platelet and differential (04/30/2018 4:56 AM)Only the most recent of27 resultswithin the time period is included. WBC 10.89 4.50 - 11.00 k/uL [facility] DEPARTMENT OF PATHOLOGY AND GENOMIC MEDICINE RBC 4.14 (L) 4.40 - 6.00 m/uL [facility] DE[facility]MENT OF PATHOLOGY AND GENOMIC MEDICINE HGB 11.5 (L) 14.0 - 18.0 g/dL [facility] DEPARTMENT OF PATHOLOGY AND GENOMIC MEDICINE HCT 37.6 (L) 41.0 - 51.0 % [facility] DEPARTMENT OF PATHOLOGY AND GENOMIC MEDICINE MCV 90.8 82.0 - 100.0 fL [facility] DEPARTMENT OF PATHOLOGY AND GENOMIC MEDICINE MCH 27.8 27.0 - 34.0 pg [facility] DEPARTMENT OF PATHOLOGY AND GENOMIC MEDICINE MCHC 30.6 (L) 31.0 - 37.0 g/dL [facility] DEPARTMENT OF PATHOLOGY AND GENOMIC MEDICINE RDW - SD 54.3 37.0 - 55.0 fL [facility] DEPARTMENT OF PATHOLOGY AND GENOMIC MEDICINE MPV 11.0 8.8 - 13.2 fL [facility] DEPARTMENT OF PATHOLOGY AND GENOMIC MEDICINE Platelet count 195 150 - 400 k/uL [facility] DEPARTMENT OF PATHOLOGY AND GENOMIC MEDICINE Nucleated RBC 0.00 /100 WBC [facility] DEPARTMENT OF PATHOLOGY AND GENOMIC MEDICINE Neutrophils 91.1 (H) 39.0 - 69.0 % [facility] DEPARTMENT OF PATHOLOGY AND GENOMIC MEDICINE Lymphocytes 4.4 (L) 25.0 - 45.0 % [facility] DEPARTMENT OF PATHOLOGY AND GENOMIC MEDICINE Monocytes 3.6 0.0 - 10.0 % [facility] DEPARTMENT OF PATHOLOGY AND GENOMIC MEDICINE Eosinophils 0.0 0.0 - 5.0 % [facility] DEPARTMENT OF PATHOLOGY AND GENOMIC MEDICINE Basophils 0.2 0.0 - 1.0 % [facility] DEPARTMENT OF PATHOLOGY AND GENOMIC MEDICINE Immature granulocytes 0.7Comment: 0.0 - 1.0 % [facility] DEPARTMENT OF "Immature PATHOLOGY AND GENOMIC granulocytes" MEDICINE (promyelocytes, myelocytes, metamyelocytes) Specimen Blood Performing Organization Address City/State/Zipcode Phone Number [facility] DEPARTMENT OF PATHOLOGY AND [address] [place] [address] [employer] MEDICINE Basic metabolic panel (04/30/2018 4:56 AM)Only the most recent of23 resultswithin the time period is included. Sodium 141 135 - 148 mEq/L [facility] DEPARTMENT OF PATHOLOGY AND GENOMIC MEDICINE Potassium 4.0 3.5 - 5.0 mEq/L [facility] DEPARTMENT OF PATHOLOGY AND GENOMIC MEDICINE Chloride 101 98 - 112 mEq/L [facility] DEPARTMENT OF PATHOLOGY AND GENOMIC MEDICINE CO2 30 24 - 31 mEq/L [facility] DEPARTMENT OF PATHOLOGY AND GENOMIC MEDICINE Anion gap 10@ANIO 7 - 15 mEq/L [facility] DEPARTMENT OF PATHOLOGY AND GENOMIC MEDICINE BUN 28 (H) 8 - 23 mg/dL [facility] DEPARTMENT OF PATHOLOGY AND GENOMIC MEDICINE Creatinine 0.9 0.7 - 1.2 mg/dL [facility] DEPARTMENT OF PATHOLOGY AND GENOMIC MEDICINE Glucose 154 (H) 65 - 99 mg/dL [facility] DEPARTMENT OF PATHOLOGY AND GENOMIC MEDICINE Calcium 8.5 (L) 8.8 - 10.2 mg/dL [facility] DEPARTMENT OF PATHOLOGY AND GENOMIC MEDICINE Specimen Plasma specimen Performing Organization Address City/State/Zipcode Phone Number [facility] DEPARTMENT OF PATHOLOGY AND [address] [place] [address] [facility] CT Angiogram Pe Chest (04/27/2018 9:18 PM)Only the most recent of3 resultswithin the time period is included. Narrative Performed At EXAMINATION: RADIANT CT ANGIOGRAM PE CHEST CLINICAL HISTORY:77 years Male sob TECHNIQUE:CT angiographic images of the chest were obtained during intravenous administration of iodinated contrast. Computerized reformatted images and 3-D MIP images were also obtained and archived (CT pulmonary embolus protocol). CT imaging was performed with iterative reconstruction techniques and/or automated exposure control to reduce radiation dose. COMPARISON: To previous study from 12/24/2017 FINDINGS: 1.There is no evidence of central pulmonary artery embolus. 2.There is no evidence of hilar or mediastinal lymphadenopathy. 3.Extensive calcified pleural plaques are present. Findings are consistent with asbestos exposure. Minimal bronchiectasis is present in the lung bases. No consolidation is appreciated. 4.Extensive ankylosis across the thoracic spine is present. IMPRESSION: 1.No evidence of central pulmonary artery embolus. [facility]-[id number] Procedure Note Interface, Radiology Results Incoming - 04/27/2018 9:37 PM CDT EXAMINATION: CT ANGIOGRAM PE CHEST CLINICAL HISTORY:77 years Male sob TECHNIQUE: CT angiographic images of the chest were obtained during intravenous administration of iodinated contrast. Computerized reformatted images and 3-D MIP images were also obtained and archived (CT pulmonary embolus protocol). CT imaging was performed with iterative reconstruction techniques and/or automated exposure control to reduce radiation dose. COMPARISON: To previous study from 12/24/2017 FINDINGS: 1. There is no evidence of central pulmonary artery embolus. 2. There is no evidence of hilar or mediastinal lymphadenopathy. 3. Extensive calcified pleural plaques are present. Findings are consistent with asbestos exposure. Minimal bronchiectasis is present in the lung bases. No consolidation is appreciated. 4. Extensive ankylosis across the thoracic spine is present. IMPRESSION: 1. No evidence of central pulmonary artery embolus. [facility]-[id number] Performing Organization Address [facility]/Zipcode Phone Number [facility] [address] [place] [address] Troponin (04/27/2018 4:25 PM)Only the most recent of11 resultswithin the time period is included. Troponin <0.30 0.00 - 0.30 ng/mL [facility] DEPARTMENT OF PATHOLOGY Comment: AND GENOMIC MEDICINE 0.30 - 1.49 ng/mlMay indicate increased risk of acute coronary syndrome. >=1.5 ng/mlConsistent with acute myocardial infarction. The diagnostic value of a single normal or non-diagnostic result is questionable.Serial samples at 2-6 hour intervals are required to rule out acute myocardial injury. Specimen Plasma specimen Performing Organization Address [facility] Phone Number [facility] DEPARTMENT OF PATHOLOGY AND [address] [place] [phone] [facility] Venous blood gas (04/27/2018 2:01 PM) pH, venous 7.44 (H) 7.32 - 7.42 [facility] DEPARTMENT OF PATHOLOGY AND GENOMIC MEDICINE pCO2, venous 50 45 - 51 mmHg [facility] DEPARTMENT OF PATHOLOGY AND GENOMIC MEDICINE pO2, venous 84 (H) 25 - 40 mmHg [facility] DEPARTMENT OF PATHOLOGY AND GENOMIC MEDICINE Base excess, venous 8 (H) -2 - 2 meq/L [facility] DEPARTMENT OF PATHOLOGY AND GENOMIC MEDICINE O2 saturation, venous 96 (H) 40 - 70 % [facility] DEPARTMENT OF PATHOLOGY AND GENOMIC MEDICINE Bicarbonate, venous 33.2 (H) 21.0 - 28.0 mmol/L [facility] DEPARTMENT OF PATHOLOGY AND GENOMIC MEDICINE Specimen Blood Performing Organization Address [facility] Phone Number [facility] DEPARTMENT OF PATHOLOGY AND [address] [place] [phone] [employer] [facility] Partial thromboplastin time, activated (04/27/2018 1:45 PM)Only the most recent of3 resultswithin the time period is included. PTT 28.5 23.0 - 36.0 sec [facility] DEPARTMENT OF PATHOLOGY Comment: AND [facility] PTT therapeutic range for unfractionated heparin is 61.0-112.0 seconds which corresponds to Anti-Xa 0.3-0.7 U/ml. Specimen Blood Performing Organization Address [facility] Phone Number [facility] DEPARTMENT OF PATHOLOGY AND [address] [place] [address] Prothrombin time with INR (04/27/2018 1:45 PM)Only the most recent of3 resultswithin the time period is included. Prothrombin time 13.9 12.0 - 15.0 sec [facility] DEPARTMENT OF PATHOLOGY AND [facility] INR 1.1 [facility] DEPARTMENT OF Comment: PATHOLOGY AND [facility] International Normalized Ratio (INR) is a therapeutic MEDICINE monitoring tool for patients who are stable on oral anticoagulant therapy. An INR of 2.0-3.0 is suggested for deep vein thrombosis/pulmonary embolism. Specimen Blood Performing Organization Address [facility] Phone Number [facility] DEPARTMENT OF PATHOLOGY AND [address] [place] [address] B natriuretic peptide (04/27/2018 1:45 PM)Only the most recent of6 resultswithin the time period is included. BNP 850 (H) 0 - 100 pg/mL [facility] DEPARTMENT OF PATHOLOGY AND [facility] Specimen Blood Performing Organization Address [facility] Number [facility] DEPARTMENT OF PATHOLOGY AND [address] [place] [address] Creatine kinase, total (CPK) (04/27/2018 1:45 PM)Only the most recent of3 resultswithin the time period is included. Creatine kinase 58 39 - 308 U/L [facility] DEPARTMENT OF PATHOLOGY AND [facility] Specimen Plasma specimen Performing Organization Address [facility] Phone Number [facility] DEPARTMENT OF PATHOLOGY AND [address] [place] [address] Digoxin level (04/27/2018 1:45 PM)Only the most recent of2 resultswithin the time period is included. Digoxin 0.7 (L) 0.8 - 2.0 ng/mL [facility] DEPARTMENT OF PATHOLOGY Comment: AND [facility] For valid Digoxin results, at least 6 hours should elapse between time of last dose and collection of blood. Otherwise, result may be false high. Therapeutic Range: 0.8 - 2.0 ng/mL Specimen Plasma specimen Performing Organization Address City/State/Zipcode Phone Number [facility] DEPARTMENT OF PATHOLOGY AND [address] [place] [address] [facility] Comprehensive metabolic panel (04/27/2018 1:45 PM)Only the most recent of8 resultswithin the time period is included. Sodium 143 135 - 148 mEq/L [facility] DEPARTMENT OF PATHOLOGY AND GENOMIC MEDICINE Potassium 3.7 3.5 - 5.0 mEq/L [facility] DEPARTMENT OF PATHOLOGY AND GENOMIC MEDICINE Chloride 99 98 - 112 mEq/L [facility] DEPARTMENT OF PATHOLOGY AND GENOMIC MEDICINE CO2 33 (H) 24 - 31 mEq/L [facility] DEPARTMENT OF PATHOLOGY AND GENOMIC MEDICINE Anion gap 11@ANIO 7 - 15 mEq/L [facility] DEPARTMENT OF PATHOLOGY AND GENOMIC MEDICINE BUN 25 (H) 8 - 23 mg/dL [facility] DEPARTMENT OF PATHOLOGY AND GENOMIC MEDICINE Creatinine 0.9 0.7 - 1.2 mg/dL [facility] DEPARTMENT OF PATHOLOGY AND GENOMIC MEDICINE Glucose 112 (H) 65 - 99 mg/dL [facility] DEPARTMENT OF PATHOLOGY AND GENOMIC MEDICINE Calcium 8.7 (L) 8.8 - 10.2 mg/dL [facility] DEPARTMENT OF PATHOLOGY AND GENOMIC MEDICINE Protein 6.1 (L) 6.3 - 8.3 g/dL [facility] DEPARTMENT OF Comment: PATHOLOGY AND GENOMIC 4.6-7.0 g/dL MEDICINE 1 week 4.4-7.6 g/dL 7 months-1year5.1-7.3 g/dL 1-2 years5.6-7.5 g/dL >3 years6.0-8.0 g/dL 18-150 6.3-8.3 g/dL Albumin 3.1 (L) 3.5 - 5.0 g/dL [facility] DEPARTMENT OF PATHOLOGY AND GENOMIC MEDICINE A/G ratio 1.0 0.7 - 3.8 [facility] DEPARTMENT OF PATHOLOGY AND GENOMIC MEDICINE Alkaline phosphatase 67 40 - 129 U/L [facility] DEPARTMENT OF PATHOLOGY AND GENOMIC MEDICINE AST 18 10 - 50 U/L [facility] DEPARTMENT OF PATHOLOGY AND GENOMIC MEDICINE ALT 11 5 - 50 U/L [facility] DEPARTMENT OF PATHOLOGY AND GENOMIC MEDICINE Total bilirubin 0.4 0.0 - 1.2 mg/dL [facility] DEPARTMENT OF PATHOLOGY AND GENOMIC MEDICINE Specimen Plasma specimen Performing Organization Address City/State/Zipcode Phone Number [facility] DEPARTMENT OF PATHOLOGY AND [address] [place] [address] GENOMIC MEDICINE ECG ED Preliminary Interpretation - NOT AN ORDER (04/27/2018 1:00 PM)Only the most recent of4 resultswithin the time period is included. Narrative Performed At [facility] Lu Ceja MD 05/01/20188:43 PM ECG ED Preliminary Interpretation - Not an Order Performed by: RU CEJA Authorized by: RU CEJA ECG reviewed by ED Physician in the absence of a hay baler: yes Previous ECG: Previous ECG:Unavailable Interpretation: Interpretation: abnormal Rate: ECG rate:95 Rhythm: Rhythm: A-V block and paced Rhythm comment:1st degree AV block Pacing: Type of pacing:Atrial and ventricular (atrial sensed ventricular paced) Ectopy: Ectopy: none QRS: QRS axis:Normal QRS intervals:Normal Conduction: Conduction: normal ST segments: ST segments:Normal T waves: T waves: normal Other findings: Other findings: prolonged qTc interval Comments: Prolong qtc at 492 and prolonged DE at 210 XR Chest 2 Vw (04/27/2018 12:53 PM)Only the most recent of5 resultswithin the time period is included. Narrative Performed At EXAMINATION:XR CHEST 2 VW HM [facility] CLINICAL HISTORY:SOBpneumothorax suspected COMPARISON:01/07/2018 Technique:PA and lateral chest radiographs are obtained. IMPRESSION: 1.The lungs are clear. 2.There is no pleural fluid or pneumothorax. Pleural calcifications are stable. 3.The heart size and mediastinal contours are within normal limits. 4.Bones are osteopenic. 5.Dual-chamber pacemaker is stable. [id number] Procedure Note Hm Interface, Radiology Results Incoming - 04/27/2018 12:58 PM CDT EXAMINATION: XR CHEST 2 VW CLINICAL HISTORY: SOB pneumothorax suspected COMPARISON: 01/07/2018 Technique: PA and lateral chest radiographs are obtained. IMPRESSION: 1. The lungs are clear. 2. There is no pleural fluid or pneumothorax. Pleural calcifications are stable. 3. The heart size and mediastinal contours are within normal limits. 4. Bones are osteopenic. 5. Dual-chamber pacemaker is stable. [id number] Performing Organization Address [facility] Phone Number [facility] [address] [place] [address] Respiratory pathogen panel (04/27/2018 12:43 PM)Only the most recent of5 resultswithin the time period is included. Respiratory pathogen Negative for all pathogens tested: [facility] DEPARTMENT OF panel Negative for Adenovirus PATHOLOGY [...] Nares Specimen Site: Not specified Specimen Nares - Not specified Performing Organization Address [facility] Phone Number [facility] DEPARTMENT OF PATHOLOGY AND [address] [phone] GENOMIC MEDICINE ECG 12 lead (04/27/2018 12:14 PM)Only the most recent of9 resultswithin the time period is included. Ventricular rate 95 [facility] MUSE Atrial rate 95 [facility] MUSE DE interval 210 [facility] MUSE QRSD interval 162 [facility] QT interval 392 [facility] MUSE QTC interval 492 [facility] MUSE P axis 1 67 [facility] QRS axis 1 -63 [facility] T wave axis 96 [facility] MUSE EKG impression Atrial-sensed ventricular-paced rhythm with [facility] MUSE prolonged AV conduction-Abnormal ECG-In automated comparison with ECG of 07-JAN-2018 21:33,-Vent. rate has decreased BY 10 BPM- Performing Organization Address City/[facility] Centercode Phone Number [facility] [address] [place] [address] [place] Esophagram Complete (01/13/2018 3:47 PM) Narrative Performed At EXAMINATION:[place] ESOPHAGRAM COMPLETE [facility] CLINICAL HISTORY:R13.10 Dysphagiaunspecified, CHOKING SENSATION, DIFFICULTY SWALLOWING COMPARISON:None. TECHNIQUE:Esophagram was performed with effervescent granules and barium. FLUOROSCOPIC TIME:1.8 minutes IMAGES:31 FINDINGS: 1.Swallow:Swallowing mechanism was normal. Esophagus was distensible. The mucosa and motility were within normal limits. 2.Gastroesophageal junction:No evidence of hiatal hernia. No reflux. 3.Visualized portions of the stomach and proximal small bowel unremarkable. IMPRESSION: 1.Unremarkable esophagram. [id number] Procedure Note Interface, Radiology Results Incoming - [...] small bowel unremarkable. IMPRESSION: 1. Unremarkable esophagram. [id number] Performing Organization Address City/State/Zipcode Phone Number [facility] [address] [place] [address] Manual differential (01/08/2018 5:05 AM)Only the most recent of13 resultswithin the time period is included. Manual differential PERFORMED [facility] DEPARTMENT OF PATHOLOGY AND GENOMIC MEDICINE Neutrophils 84.0 (H) 39.0 - 69.0 % [facility] DEPARTMENT OF PATHOLOGY AND GENOMIC MEDICINE Lymphocytes 9.0 (L) 25.0 - 45.0 % [facility] DEPARTMENT OF PATHOLOGY AND GENOMIC MEDICINE Monocytes 3.0 0.0 - 10.0 % [facility] DEPARTMENT OF PATHOLOGY AND GENOMIC MEDICINE Eosinophils 0.0 0.0 - 5.0 % [facility] DEPARTMENT OF PATHOLOGY AND GENOMIC MEDICINE Basophils 0.0 0.0 - 1.0 % [facility] DEPARTMENT OF PATHOLOGY AND GENOMIC MEDICINE Metamyelocytes 1 % [facility] DEPARTMENT OF PATHOLOGY AND GENOMIC MEDICINE Myelocytes 3 % [facility] DEPARTMENT OF PATHOLOGY AND GENOMIC MEDICINE Promyelocytes 0 % [facility] DEPARTMENT OF PATHOLOGY AND GENOMIC MEDICINE Platelet slide review Decreased (A) [facility] DEPARTMENT OF PATHOLOGY AND GENOMIC MEDICINE Anisocytosis Moderate [facility] DEPARTMENT OF PATHOLOGY AND GENOMIC MEDICINE Performing Organization Address City/[facility] Phone Number [facility] DEPARTMENT OF PATHOLOGY AND [address] [place] [address] Urinalysis screen and microscopy, with reflex to culture (01/07/2018 10:05 PM) Specimen site Clean catch [facility] DEPARTMENT OF PATHOLOGY AND GENOMIC MEDICINE Color, UA Awilda [facility] DEPARTMENT OF PATHOLOGY AND GENOMIC MEDICINE Appearance, UA Clear [facility] DEPARTMENT OF PATHOLOGY AND GENOMIC MEDICINE Specific gravity, UA 1.024 1.001 - 1.035 [facility] DEPARTMENT OF PATHOLOGY AND GENOMIC MEDICINE pH, UA 5.0 5.0 - 8.5 [facility] DEPARTMENT OF PATHOLOGY AND GENOMIC MEDICINE Protein, UA 2+ (A) Negative [facility] DEPARTMENT OF PATHOLOGY AND GENOMIC MEDICINE Glucose, UA Negative Negative [facility] DEPARTMENT OF PATHOLOGY AND GENOMIC MEDICINE Ketones, UA Negative Negative [facility] DEPARTMENT OF PATHOLOGY AND GENOMIC MEDICINE Bilirubin, UA Negative Negative [facility] DEPARTMENT OF PATHOLOGY AND GENOMIC MEDICINE Blood, UA Negative Negative [facility] DEPARTMENT OF PATHOLOGY AND GENOMIC MEDICINE Nitrite, UA Negative Negative [facility] DEPARTMENT OF PATHOLOGY AND GENOMIC MEDICINE Urobilinogen, UA <2.0 <2.0 [facility] DEPARTMENT OF PATHOLOGY AND GENOMIC MEDICINE Leukocyte esterase, UA Negative Negative [facility] DEPARTMENT OF PATHOLOGY AND GENOMIC MEDICINE WBC, UA 1 0 - 1 /HPF [facility] DEPARTMENT OF PATHOLOGY AND GENOMIC MEDICINE RBC, UA 3 0 - 5 /HPF [facility] DEPARTMENT OF PATHOLOGY AND GENOMIC MEDICINE Bacteria, UA Few None seen [facility] DEPARTMENT OF PATHOLOGY AND GENOMIC MEDICINE Yeast, UA None seen [facility] DEPARTMENT OF PATHOLOGY AND GENOMIC MEDICINE Yeast with pseudohyphae, UA None seen [facility] DEPARTMENT OF PATHOLOGY AND GENOMIC MEDICINE Sperm, UA Few (A) [facility] DEPARTMENT OF PATHOLOGY AND GENOMIC MEDICINE Hyaline casts, UA 7 /LPF [facility] DEPARTMENT OF PATHOLOGY AND GENOMIC MEDICINE Specimen Urine Performing Organization Address City/[facility] Centercode Phone Number [facility] DEPARTMENT OF PATHOLOGY AND [address] [place] [phone] [facility] Urine culture (01/07/2018 10:04 PM) Urine culture SEE COMMENTComment: Bacteriuria [facility] DEPARTMENT OF PATHOLOGY screen negative. AND GENOMIC MEDICINE Performing Organization Address City/[facility]/Zipcode Phone Number [facility] DEPARTMENT OF PATHOLOGY AND [address] [place] [address] GENOMIC MEDICINE Theophylline level (01/04/2018 3:50 PM)Only the most recent of2 resultswithin the time period is included. Theophylline 3.91 (L) 10.00 - 20.00 ug/mL [facility] DEPARTMENT OF PATHOLOGY AND Comment: GENOMIC MEDICINE Therapeutic Range: 10 - 20 ug/mL Specimen Plasma specimen Performing Organization Address City/[facility]/Zipcode Phone Number [facility] DEPARTMENT OF PATHOLOGY AND [address] [place] [address] GENOMIC MEDICINE IgG subclasses (12/30/2017 4:00 AM) Immunoglobulin G subclass 295 240 - 1,118 mg/dL [facility] 1 Comment: REFERENCE INTERVAL: Immunoglobulin G Subclass 1 Access complete set of age- and/or gender-specific reference intervals for this test in the [facility] Test Directory ([employer]). Immunoglobulin G subclass 69 (L) 124 - 549 mg/dL [facility] 2 Comment: REFERENCE INTERVAL: Immunoglobulin G Subclass 2 Access complete set of age- and/or gender-specific reference intervals for this test in the [facility] Test Directory ([employer]). Immunoglobulin G subclass 36 21 - 134 mg/dL [facility] 3 Comment: REFERENCE INTERVAL: Immunoglobulin G Subclass 3 Access complete set of age- and/or gender-specific reference intervals for this test in the [facility] Test Directory ([employer]). Immunoglobulin G subclass 12 1 - 123 mg/dL [facility] 4 Comment: The total IgG (mg/dL) can be derived by the sum of the subclasses IgG1, IgG2, IgG3 and IgG4 values. However, a confirmatory and more precise total IgG is available by the nephelometric method of total IgG (Test # [id number]). REFERENCE INTERVAL: Immunoglobulin G Subclass 4 Access complete set of age- and/or gender-specific reference intervals for this test in the [facility] Test Directory ([employer]). Performed by [facility], [address] [place] [address] [email or web address], Samson Estrada MD - Lab. Director Specimen Serum Performing Organization Address [facility]/Zipcode Phone Number [facility] [address] [place] [address] Heparin PF4 antibody (IgG) (12/29/2017 4:00 AM) Heparin PF4 Ab OD reading 0.161 0.000 - 0.399 [facility] DEPARTMENT OF PATHOLOGY AND GENOMIC MEDICINE Heparin PF4 Ab, IgG Negative Negative [facility] DEPARTMENT OF PATHOLOGY AND GENOMIC MEDICINE Specimen Blood Performing Organization Address City/[facility] Phone Number [facility] DEPARTMENT OF PATHOLOGY AND [address] [place] [address] GENOMIC MEDICINE Surgical pathology request (12/28/2017 9:53 AM) [facility] DEPARTMENT OF PATHOLOGY AND GENOMIC MEDICINE Surgical pathology report See link below for PDF [facility] DEPARTMENT OF Lab Report PATHOLOGY AND GENOMIC MEDICINE Result status This is Final Report to [facility] DEPARTMENT OF [id number] PATHOLOGY AND GENOMIC MEDICINE Performing Organization Address [facility] Phone Number [facility] DEPARTMENT OF PATHOLOGY AND [address] [place] [address] CT Soft Tissue Neck Wo Contrast (12/24/2017 [...] IMPRESSION: No definite abnormality of clinical significance. [id number] Procedure Note Interface, Radiology Results - 12/24/2017 [...] IMPRESSION: No definite abnormality of clinical significance. [id number] Performing Organization Address City/State/Zipcode Phone Number [facility] [address] [place] [address] CT Chest Wo Contrast (12/24/2017 6:16 AM) Narrative Performed At EXAMINATION: [facility] CT CHEST WO CONTRAST CLINICAL HISTORY: [...] lobe pulmonary nodules.Asbestos-related pleural disease. Procedure Note [facility], Radiology Results Incoming - 12/25/2017 5:15 PM [...] pulmonary nodules.Asbestos-related pleural disease. Performing Organization Address [facility] Phone Number [facility] [address] [place] [address] Arterial blood gas (12/23/2017 8:11 PM)Only the most recent of3 resultswithin the time period is included. pH, arterial 7.45 7.35 - 7.45 [facility] DEPARTMENT OF PATHOLOGY AND GENOMIC MEDICINE pCO2, arterial 42 35 - 45 mmHg [facility] DEPARTMENT OF PATHOLOGY AND GENOMIC MEDICINE pO2, arterial 79 (L) 80 - 90 mmHg [facility] DEPARTMENT OF PATHOLOGY AND GENOMIC MEDICINE Bicarbonate, arterial 29.0 (H) 21.0 - 28.0 mmol/L [facility] DEPARTMENT OF PATHOLOGY AND GENOMIC MEDICINE Base excess, arterial 5 (H) -2 - 2 mEq/L [facility] DEPARTMENT OF PATHOLOGY AND GENOMIC MEDICINE O2 saturation, arterial 96 95 - 100 % [facility] DEPARTMENT OF PATHOLOGY AND GENOMIC MEDICINE Specimen Blood Performing Organization Address City/[facility] Phone Number [facility] DEPARTMENT OF PATHOLOGY AND [address] [place] [address] GENOMIC [facility] Magnesium level (12/13/2017 4:30 AM)Only the most recent of2 resultswithin the time period is included. Magnesium 1.8 1.6 - 2.4 mg/dL [facility] DEPARTMENT OF PATHOLOGY AND GENOMIC MEDICINE Specimen Plasma specimen Performing Organization Address City/[facility] Phone Number [facility] DEPARTMENT OF PATHOLOGY AND [address] [place] [address] GENOMIC [facility] Lactic acid level (12/12/2017 1:43 PM)Only the most recent of2 resultswithin the time period is included. Lactic acid 3.3 (H) 0.5 - 2.2 mmol/L [facility] DEPARTMENT OF PATHOLOGY AND GENOMIC MEDICINE Specimen Blood Performing Organization Address [facility] Phone Number [facility] DEPARTMENT OF PATHOLOGY AND [address] [place] [address] Lactic acid level, SEPSIS - Now and repeat 2x every 3 hours (12/10/2017 9:28 PM )Only the most recent of3 resultswithin the time period is included. Lactic acid 2.5 (H) 0.5 - 2.2 mmol/L [facility] DEPARTMENT OF PATHOLOGY AND GENOMIC MEDICINE Specimen Blood Performing Organization Address [facility] Phone Number [facility] DEPARTMENT OF PATHOLOGY AND [address] [place] [address] GENOMIC [facility] XR Chest 1 Vw Portable (12/10/2017 4:38 PM)Only the most recent of3 resultswithin the time period is included. Narrative Performed At EXAMINATION:XR CHEST 1 VW PORTABLE [facility] CLINICAL HISTORY:SHORTNESS OF BREATH COMPARISON:Single view chest [...] a right-sided pacemaker. The bones are unremarkable. [facility]-[id number] Procedure Note Hm Interface, Radiology Results Incoming - 12/10/2017 4:45 [...] a right-sided pacemaker. The bones are unremarkable. [id number] Performing Organization Address [facility] Phone Number [facility] [address] [place] [address] XR Abdomen 1 Vw (12/10/2017 4:38 PM) Narrative Performed At EXAMINATION:XR ABDOMEN 1 VW [facility] CLINICAL HISTORY:abd distension COMPARISON:KUB from 10/13/2017 IMPRESSION: Nonspecific bowel gas pattern. No dilated loops of bowel.A moderate amount of stool is seen within the ascending colon. Osteopenia. Degenerative changes are seen within the lumbar spine. Orthopedic hardware is seen within the right hip. [facility]-[id number] Procedure Note Hm Interface, Radiology Results Incoming - 12/10/2017 4:44 PM CDT EXAMINATION: XR ABDOMEN 1 VW CLINICAL HISTORY: abd distension COMPARISON: KUB from 10/13/2017 IMPRESSION: Nonspecific bowel gas pattern. No dilated loops of bowel. A moderate amount of stool is seen within the ascending colon. Osteopenia. Degenerative changes are seen within the lumbar spine. Orthopedic hardware is seen within the right hip. [facility]-[id number] Performing Organization Address [facility] Phone Number [facility] [address] [place] [address] Blood culture, aerobic & anaerobic (12/10/2017 3:40 PM)Only the most recent of5 resultswithin the time period is included. Blood culture isolate No growth after 5 days of incubation. [facility] DEPARTMENT OF Comment: PATHOLOGY AND GENOMIC Specimen Information MEDICINE Specimen Source: Blood Specimen Site: Arm, left Specimen Blood - Arm, left Performing Organization Address [facility]ode Phone Number [facility] DEPARTMENT OF PATHOLOGY AND [address] [place] [address] GENOMIC MEDICINE POC glucose (11/09/2017 8:28 AM)Only the most recent of2 resultswithin the time period is included. POC glucose 162 (H) 65 - 99 mg/dL [facility] DEPARTMENT OF PATHOLOGY AND Comment: [employer] Administered Insulin Meter ID: [id number] Phd Intern: Tony Lomeli Paula Performing Organization Address City/State/Zipcode Phone Number [facility] DEPARTMENT OF PATHOLOGY AND [address] [place] [address] GENOMIC MEDICINE CRITICAL CARE (11/07/2017 6:00 PM) Narrative Performed [...] needed (10/14/2017 9:12 AM) Narrative Performed At [facility] Echocardiography Report [id number] [address] Pat.Name:Bernadette PRUITT.ID:[id number] .Date: 10/14/2017 Refer.MD:ALMAZ GARZA MD Exam Time: 8:37:00 AMStudy Type:Routine Echo Height:67inWeight: 175lb BSA: 1.91 m2 DOBAge:1940,76Y Sex: MALEBP:169/79 Sonogrphr: Quinten Alfonso, DAISY, RDCS, RICARDO Pat. Stat.:Inpatient Room:[address] Status:Final Echo Event ID:[id number] Order ID:[id number] Reason for Study:HF; initial eval with symptoms [...] RAPof 5 mmHg. 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 Stat.:Inpatient Room: [facility] Study Status:Final Echo Event ID:[id number] Order ID: [id number] Reason for Study:HF; initial eval with symptoms [...] of 5 mmHg. MEASUREMENTS: 2D Parasternal Long Aroda LVOT 2.1 cm LA Ds 3.8 cm [...] PM Mushtaq Aleman M.D. Performing Organization Address [facility] Cent[facility]ode Phone Number [facility] [address] [place] [address] Thyroid stimulating hormone (10/14/2017 5:00 AM) TSH 0.54 0.27 - 4.20 uIU/mL [facility] DEPARTMENT OF PATHOLOGY AND GENOMIC MEDICINE Specimen Plasma specimen Performing Organization Address [facility] Phone Number [facility] DEPARTMENT OF PATHOLOGY AND [address] [place] [address] GENOMIC MEDICINE T4, free (10/14/2017 5:00 AM) T4, free 1.1 0.9 - 1.7 ng/dL [facility] DEPARTMENT OF PATHOLOGY AND GENOMIC MEDICINE Specimen Plasma specimen Performing Organization Address City/[facility] Phone Number [facility] DEPARTMENT OF PATHOLOGY AND [address] [place] [address] [facility] Phosphorus level (10/14/2017 5:00 AM) Phosphorus 2.6 2.4 - 4.5 mg/dL [facility] DEPARTMENT OF PATHOLOGY AND GENOMIC MEDICINE Specimen Plasma specimen Performing Organization Address City/[facility]ode Phone Number [facility] DEPARTMENT OF PATHOLOGY AND [address] [place] [phone] [facility] Hemoglobin A1c (10/14/2017 5:00 AM) Hemoglobin A1C 6.2 (H) 4.0 - 5.6 % [facility] DEPARTMENT OF PATHOLOGY Comment: AND GENOMIC [facility] HbA1c cutoffs for diagnosing diabetes: 4.0% - 5.6%=normal 5.7% - 6.4%=increased risk for diabetes (prediabetes) >=6.5%=diabetes Goals for glycemic control (ADA 2016) < 7.0%Target for non adults with diabetes. More or less stringent targets may be appropriate for individual patients. <7.5% Target for Children and adolescents with type 1 diabetes. Specimen Blood Performing Organization Address [facility] Phone Number [facility] DEPARTMENT OF PATHOLOGY AND [address] [place] [address] [facility] Hepatic function panel (10/14/2017 5:00 AM) Albumin 2.6 (L) 3.5 - 5.0 g/dL [facility] DEPARTMENT OF PATHOLOGY AND GENOMIC MEDICINE Total bilirubin 0.3 0.0 - 1.2 mg/dL [facility] DEPARTMENT OF PATHOLOGY AND GENOMIC MEDICINE Bilirubin direct <0.2 0.0 - 0.3 mg/dL [facility] DEPARTMENT OF PATHOLOGY AND GENOMIC MEDICINE Alkaline phosphatase 49 40 - 129 U/L [facility] DEPARTMENT OF PATHOLOGY AND GENOMIC MEDICINE Protein 6.3 6.3 - 8.3 g/dL [facility] DEPARTMENT OF Comment: PATHOLOGY AND GENOMIC 4.6-7.0 g/dL MEDICINE 1 week 4.4-7.6 g/dL 7 months-1year5.1-7.3 g/dL 1-2 years5.6-7.5 g/dL >3 years6.0-8.0 g/dL 18-150 6.3-8.3 g/dL ALT 8 5 - 50 U/L [facility] DEPARTMENT OF PATHOLOGY AND GENOMIC MEDICINE AST 13 10 - 50 U/L [facility] DEPARTMENT OF PATHOLOGY AND GENOMIC MEDICINE Specimen Plasma specimen Performing Organization Address [facility] Phone Number [facility] DEPARTMENT OF PATHOLOGY AND [address] [place] [address] GENOMIC MEDICINE Lipid panel (10/14/2017 5:00 AM) Cholesterol 145 <200 mg/dL [facility] DEPARTMENT OF PATHOLOGY AND GENOMIC MEDICINE Triglycerides 63 <150 mg/dL [facility] DEPARTMENT OF PATHOLOGY AND GENOMIC MEDICINE HDL cholesterol 33 (L) >40 mg/dL [facility] DEPARTMENT OF PATHOLOGY AND GENOMIC MEDICINE LDL cholesterol 102 (H)Comment: Result <100 mg/dL [facility] DEPARTMENT obtained by direct LDL PATHOLOGY AND GENOMIC measurement MEDICINE Lipid panel interpretation SeeBelow [facility] DEPARTMENT OF Comment: PATHOLOGY AND GENOMIC Total Cholesterol (mg/dL) MEDICINE <200 Desirable [id number]-ynwd >=240High Triglycerides (mg/dL) <150 Normal 752-572Bsnourtopg-dkng 200-499High >=500Very high HDL Cholesterol (mg/dL) <40Low (male) <40Low (female) LDL Cholesterol (mg/dL) <100 Optimal 100-129Near or above optimal 903-117Fsmahxqofa-vsdv 160-189High >=190Very high Risk Catergories that modify [...] mg/dL) Specimen Plasma specimen Performing Organization Address [facility] Centercode Phone Number [facility] DEPARTMENT OF PATHOLOGY AND [address] [place] [address] [employer] [facility] XR Abdomen 1 Vw Portable (10/13/2017 8:31 PM) Narrative Performed At EXAMINATION:XR ABDOMEN 1 VW PORTABLE [facility] CLINICAL HISTORY:ABDOMINAL PAIN, constipation COMPARISON: To previous examination from 04/08/2016 FINDINGS: The bowel gas pattern is nonspecific, without evidence of small bowel distention. Moderate arthritic changes are noted involving the spine. A significant amount of feces is not present. IMPRESSION: Unremarkable abdominal radiograph. [facility]-[id number] Procedure Note Hm Interface, Radiology Results Incoming - 10/13/2017 10:53 PM WIRE TWISTING MACHINE OPERATOR EXAMINATION: XR ABDOMEN 1 VW PORTABLE CLINICAL HISTORY: ABDOMINAL PAIN, constipation COMPARISON: To previous examination from 04/08/2016 FINDINGS: The bowel gas pattern is nonspecific, without evidence of small bowel distention. Moderate arthritic changes are noted involving the spine. A significant amount of feces is not present. IMPRESSION: Unremarkable abdominal radiograph. [facility]-[id number] Performing Organization Address City/State/Zipcode Phone Number [facility] [address] [place] [address] CT Abdomen Pelvis Wo Contrast (10/10/2017 5:22 [...] of diverticulitis. 3.Additional chronic findings as listed. [facility]-[id number] Procedure Note [facility], Radiology Results Incoming - 10/10/2017 5:40 PM WIRE TWISTING MACHINE OPERATOR EXAM: CT ABDOMEN PELVIS WO CONTRAST CLINICAL [...] diverticulitis. 3. Additional chronic findings as listed. [facility]-[id number] Performing Organization Address City/State/Zipcode Phone Number [facility] [address] [place] [address] Influenza antigen (10/10/2017 3:48 PM) Influenza antigen Negative for Influenza A/B antigen. DEPARTMENT OF PATHOLOGY Comment: AND [employer] MEDICINE, Specimen Information [facility] Specimen Source: [facility] Specimen Site: Not specified Specimen Nares - Not specified Performing Organization Address [facility] Cent[facility]ode Phone Number DEPARTMENT OF PATHOLOGY AND [address] [place] [address] Troponin, I-Stat (10/09/2017 9:26 PM) Troponin, I-Stat 0.03 0.00 - 0.08 ng/mL DEPARTMENT OF Comment: PATHOLOGY AND GENOMIC 0.09 - 1.49 ng/mlMay indicate increased risk of acute [facility] coronary syndrome. [facility] >=1.5 ng/mlConsistent with acute myocardial infarction. The diagnostic value of a single normal or non-diagnostic result is questionable.Serial samples at 2-6 hour intervals are required to rule out acute myocardial injury. Specimen Plasma specimen Performing Organization Address [facility] Phone Number DEPARTMENT OF PATHOLOGY AND [address] [place] [address] [facility] Prothrombin time with INR, I-Stat (10/09/2017 9:26 PM) POC prothrombin time 21.9 (H) 11.0 - 14.5 sec DEPARTMENT OF PATHOLOGY AND GENOMIC [facility] POC INR 1.9 DEPARTMENT OF Comment: PATHOLOGY AND GENOMIC The International Normalized Ratio (INR) is a [facility] monitoring tool for patients who are stable on oral [facility] vitamin K antagonist therapy. An INR of 2.0-3.0 is suggested for deep vein thrombosis/pulmonary embolism. An INR of 2.5-3.5 (high dose) is suggested for some patients with mechanical heart valves) Specimen Blood Performing Organization Address City/[facility] Phone Number DEPARTMENT OF PATHOLOGY AND [address] [place] [address] [facility] Lactic acid, I-Stat (10/09/2017 9:26 PM) Lactic acid, I-Stat 1.1 0.5 - 2.2 mmol/L [facility] Specimen Plasma specimen Performing Organization Address City/[facility]ode Phone Number DEPARTMENT OF PATHOLOGY AND [address] [place] [address] [facility] B natriuretic pep, I-Stat (10/09/2017 9:26 PM) BNP, I-Stat 195 (H) 0 - 100 pg/mL [facility]OLOGY [facility] Specimen Blood Performing Organization Address City/[facility] Phone Number DEPARTMENT OF PATHOLOGY AND [address] [place] [address] [facility] after 06/02/2017 Insurance Payer Benefit Plan / Group Subscriber ID Type Phone Address MEDICARE MEDICARE PART A AND B xxxxxxxxxx Medicare [place], [place] AARP AARP SUPPLEMENT xxxxxxxxxxx Commercial [phone] [place] [phone]
--- OUTSIDE RECORDS SUMMARY | 2018-06-03 11:17 | XMS REPORT | Clinical Summary ---
:1940 Author Organization [facility] Address [address] [place] [address] Phone Care Team Providers Name Role Phone [...] Noted Date Inguinal hernia 01/02/2016 Subcutaneous emphysema ([facility]) 10/03/2015 Neck pain on right side 10/02/2015 Acute on chronic systolic congestive heart failure ([facility]) 09/21/2015 Gall stones, common bile duct 02/08/2015 Abdominal pain 02/02/2015 Peripheral vascular disease ([facility]) 07/13/2014 COPD (chronic obstructive pulmonary disease) ([facility]) 07/13/2014 rheumatoid 07/13/2014 Rheumatoid arthritis ([facility]) 07/13/2014 Mitral valve disorders(424.0) 07/13/2014 Bradycardia with [...] INFLUENZA VACCINE 06/27/2018 Implants Implanted Type Area Browning Processor Device Expiration Model / Identifier Date Serial / Lot Pacemaker,Dual Chamber Rate Responsive Implantable Radio Frequency Accent Dr Narvaez - [id number] Pacemakers ST RAO [id number] / Implanted: Qty: 1 on 07/14/2014 by Adali Ness [employer] [id number] / Stent,Pancreatic Set Geenen 5fr 4cm - [id number] Stents-[facility] 06/26/2017 [id number] / Implanted: Qty: 1 on 02/07/2015 by Oxana Hemphill MD eral / [id number] Bard Mesh Right: BARD ACCESS 08/24/2020 / Implanted: Qty: 1 on 01/02/2016 by Edin Cobb MD In[employer] [id number] / [id number] Results Not on fileafter 06/02/2017
--- NOTE | 2018-06-03 11:41 | EDPHYS ---
Physician Documentation [facility] Name: Thiago Pruitt Age: 77 yrs Sex: Male : 1940 Arrival Date: 06/03/2018 Time: 11:16 Bed 15 Private MD: out of town, doctor ED Physician Jason Varner HPI: 06/03 11:34 This 77 yrs old Male presents to ER via Ambulatory with complaints of kb Laceration To Leg. 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 The injury was accidental. The laceration(s) is(are) located on the lateral aspect of left calf. Onset: The symptoms/episode began/occurred just prior to arrival. Associated signs and symptoms: The patient has no apparent associated signs or symptoms. The patient has not experienced similar symptoms in the past. The patient has not recently seen a physician. 11:37 Pt states "My skin is like paper because of the prednisone that I take.". kb Historical: - Allergies: 11:26 No Known Allergies; aj - Home Meds: 11:26 Plavix Oral [Active]; Lasix Oral PRN [Active]; aspirin 81 mg Oral chew 1 tab once daily aj [Active]; Digoxin Oral [Active]; Metoprolol Tartrate Oral [Active]; - PMHx: 11:26 asbestosis; CHF; COPD; Pacemaker; aj - PSHx: 11:26 Cholecystectomy; aj - Immunization history:: Adult Immunizations up to date. - Social history:: Smoking status: Patient/guardian denies using tobacco. - Ebola Screening: : Patient negative for fever greater than or equal to 101.5 degrees Fahrenheit, and additional compatible Ebola Virus Disease symptoms Patient denies exposure to infectious person Patient denies travel to an Ebola-affected area in the 21 days before illness onset No symptoms or risks identified at this time. ROS: 11:34 Constitutional: Negative for fever, chills, and weight loss, Cardiovascular: Negative kb for chest pain, palpitations, and edema, Respiratory: Negative for shortness of breath, cough, wheezing, and pleuritic chest pain, Abdomen/GI: Negative for abdominal pain, nausea, vomiting, diarrhea, and constipation, Back: Negative for injury and pain, : Negative for injury, bleeding, discharge, and swelling, MS/Extremity: Negative for injury and deformity, Neuro: Negative for headache, weakness, numbness, tingling, and seizure. 11:34 Skin: Positive for hematoma, laceration(s), of the lateral aspect of left calf. Exam: 11:34 Constitutional: This is a well developed, well nourished patient who is awake, alert, kb and in no acute distress. Head/Face: Normocephalic, atraumatic. Chest/axilla: Normal chest wall appearance and motion. Nontender with no deformity. No lesions are appreciated. Cardiovascular: Regular rate and rhythm with a normal S1 and S2. No gallops, murmurs, or rubs. Normal PMI, no JVD. No pulse deficits. Respiratory: Lungs have equal breath sounds bilaterally, clear to auscultation and percussion. No rales, rhonchi or wheezes noted. No increased work of breathing, no retractions or nasal flaring. Abdomen/GI: Soft, non-tender, with normal bowel sounds. No distension or tympany. No guarding or rebound. No evidence of tenderness throughout. MS/ Extremity: Pulses equal, no cyanosis. Neurovascular intact. Full, normal range of motion. Neuro: Awake and alert, GCS 15, oriented to person, place, time, and situation. Cranial nerves II-XII grossly intact. Motor strength 5/5 in all extremities. Sensory grossly intact. Cerebellar exam normal. Normal gait. 11:34 Skin: injury, laceration(s), the wound is approximately 5 cm(s), of the lateral aspect of left calf, that can be described as clean, no foreign body, linear, with mild bleeding, skin tear. Vital Signs: 11:26 BP 156 / 86; Pulse 60; Resp 15; Temp 97.8; Pulse Ox 97% on 3 lpm NC; Weight 74.84 kg; aj Height 5 ft. 9 in. (175.26 cm); 11:26 Body Mass Index 24.37 (74.84 kg, 175.26 cm) aj MDM: 11:26 Patient medically screened. kb 11:37 Data reviewed: vital signs, nurses notes. Data interpreted: Pulse oximetry: on room air kb is 97 %. Interpretation: normal. Counseling: I had a detailed discussion with the patient and/or guardian regarding: the historical points, exam findings, and any diagnostic results supporting the discharge/admit diagnosis, the need for outpatient follow up, a family practitioner, to return to the emergency department if symptoms worsen or persist or if there are any questions or concerns that arise at home. 11:37 ED course: Educated on skin tears and that sutures would tear the skin more. Pt agrees. kb Educated on keeping wound clean and dressed to prevent infection.. 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 Exp: em 06/16/2019. Lot #: [id number]. } Route: IM; Site: right deltoid; 11:51 Drug: Bactrim (160 mg-800 mg (DS) 1 tablet Route: PO; em Disposition: 16:38 Co-signature as Attending Physician, Jason Varner MD I agree with the assessment and kdr plan of care. Disposition: 06/03/18 11:41 Discharged to Home. Impression: Laceration without foreign body of lower leg. - Condition is Stable. - Discharge Instructions: Skin Tear Care, Ufhn-nm-Azsp. - Prescriptions for Bactrim DS 800- 160 mg Oral Tablet - take 1 tablet by ORAL route every 12 hours for 7 days; 14 tablet. - Medication Reconciliation Form, Thank You Letter, Antibiotic Education, Prescription Opioid Use form. - Follow up: Emergency Department; When: As needed; Reason: Worsening of condition. Follow up: Private Physician; When: 2 - 3 days; Reason: Recheck today's complaints, Continuance of care, Re-evaluation by your physician. Signatures: Irena Lopez, BETTY-C JUNIOR HIGH MATH TEACHER-Roxanne Pierson RN RN aj Rittger, Kevin, MD MD kdr Munoz, Edgar, MATERIAL HAULER MATERIAL HAULER em Corrections: (The following items were deleted from the chart) 12:09 11:41 06/03/2018 11:41 Discharged to Home. Impression: Laceration without foreign body em of lower leg. Condition is Stable. Forms are Medication Reconciliation Form, Thank You Letter, Antibiotic Education, Prescription Opioid Use. Follow up: Emergency Department; When: As needed; Reason: Worsening of condition. Follow up: Private Physician; When: 2 - 3 days; Reason: Recheck today's complaints, Continuance of care, Re-evaluation by your physician. kb
--- NOTE | 2018-06-03 11:41 | ER ---
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 Bleeding is controlled. Approximately 3 inch laceration noted to left leg. Transition of care: patient was not received from another setting of care. Complicating Factors: There are no complicating factors for this patient. Onset of symptoms was June 03, 2018. Risk Assessment: Do you want to hurt yourself or someone else? Patient reports no desire to harm self or others. Initial Sepsis Screen: Does the patient meet any 2 criteria? No. Patient's initial sepsis screen is negative. Does the patient have a suspected source of infection? No. Patient's initial sepsis screen is negative. Care prior to arrival: None. 11:22 Method Of Arrival: Ambulatory 11:22 Acuity: CHEIKH 3 aj Triage Assessment: 11:26 General: Appears in no apparent distress. comfortable, Behavior is calm, cooperative, aj appropriate for age. Pain: Complains of pain in left thomas. Neuro: Level of Consciousness is awake, alert, obeys commands, Oriented to person, place, time, situation, Appropriate for age. Respiratory: Airway is patent Respiratory effort is even, unlabored, Respiratory pattern is regular, symmetrical. Derm: Skin is intact, is healthy with good turgor, Skin is pink, warm \T\ dry. normal. Injury Description: Laceration sustained to left thomas is 2.6 to 7.5 cm long, was sustained 30-60 minutes ago. is bleeding a small amount. Historical: - Allergies: : No Known Allergies; aj - Home Meds: : Plavix Oral [Active]; Lasix Oral PRN [Active]; aspirin 81 mg Oral chew 1 tab once daily aj [Active]; Digoxin Oral [Active]; Metoprolol Tartrate Oral [Active]; - PMHx: 11: asbestosis; CHF; COPD; Pacemaker; aj - PSHx: :26 Cholecystectomy; aj - Immunization history:: Adult Immunizations up to date. - Social history:: Smoking status: Patient/guardian denies using tobacco. - Ebola Screening: : Patient negative for fever greater than or equal to 101.5 degrees Fahrenheit, and additional compatible Ebola Virus Disease symptoms Patient denies exposure to infectious person Patient denies travel to an Ebola-affected area in the 21 days before illness onset No symptoms or risks identified at this time. Screenin:58 Abuse screen: Denies threats or abuse. Nutritional screening: No deficits noted. em Tuberculosis screening: No symptoms or risk factors identified. Fall Risk None identified. Assessment: 11:50 General: Appears in no apparent distress. comfortable, Behavior is calm, cooperative. em Pain: Complains of pain in left thomas Pain currently is 4 out of 10 on a pain scale. Neuro: Level of Consciousness is awake, alert, obeys commands, Oriented to person, place, time, situation. Cardiovascular: Capillary refill < 3 seconds Patient's skin is warm and dry. Respiratory: Airway is patent Respiratory effort is even, unlabored, Respiratory pattern is regular, symmetrical. GI: Abdomen is flat. : No signs and/or symptoms were reported regarding the genitourinary system. Derm: Skin is intact, is fragile, is thin. Musculoskeletal: Range of motion: intact in all extremities. Injury Description: Laceration sustained to left thomas is clean, 2.6 to 7.5 cm long, not bleeding, was sustained 30-60 minutes ago. 11:55 Reassessment: Patient appears in no apparent distress at this time. I agree with above iw assessment by Vick Herrmann LVN. Vital Signs: 11:26 BP 156 / 86; Pulse 60; Resp 15; Temp 97.8; Pulse Ox 97% on 3 lpm NC; Weight 74.84 kg; aj Height 5 ft. 9 in. (175.26 cm); 11:26 Body Mass Index 24.37 (74.84 kg, 175.26 cm) ED Course: 11:16 Patient arrived in ED. as 11:16 out of town, doctor is Private Physician. as 11:25 Triage completed. aj 11:25 Bed in low position. Call light in reach. Pulse ox on. NIBP on. jp3 11:26 Irena Lopez FNP-C is PHCP. kb 11:26 Jason Varner MD is Attending Physician. kb 11:26 Arm band placed on left wrist. Patient placed in an exam room. Bandage applied. aj 11:35 Vick Herrmann LVN is Primary Nurse. em 11:35 Irrigation of laceration on lateral aspect of left calf and left lateral ankle jp3 irrigated with normal saline Patient tolerated well. 11:45 Wound care: to laceration located on lateral aspect of left calf and left lateral ankle jp3 was cleaned with Hibiclens, irrigated with normal saline, dressed with 4X4s, and covered with noble wrap. Patient tolerated well. Patient was instructed on proper way of cleaning and dressing wound at home. 12:07 No provider procedures requiring assistance completed. Patient did not have IV access em during this emergency room visit. 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 Exp: em 06/16/2019. Lot #: [id number]. } Route: IM; Site: right deltoid; 11:51 Drug: Bactrim (160 mg-800 mg (DS) 1 tablet Route: PO; em Outcome: 11:41 Discharge ordered by MD. kb 12:07 Discharged to home ambulatory, with family. em 12:07 Condition: good 12:07 Discharge instructions given to patient, family, Instructed on discharge instructions, follow up and referral plans. medication usage, Demonstrated understanding of instructions, follow-up care, medications, Prescriptions given X 1. 12:09 Patient left the ED. em Signatures: Irena Lopez, WOOD DRILLING MACHINE OPERATOR-C WOOD DRILLING MACHINE OPERATOR-CkRoxanne Ashley RN Vick Smith LVN LVN em Shira Mejia Irene, RN Terrance Hu jp3 Corrections: (The following items were deleted from the chart) 11:28 11:26 Bandage applied. Pressure dressing applied. amairani bales
[2018-06-03] MEDS ORDERED: SMZ./TMP. 800/160 MG TABLET ONE (11:47)
[2018-06-03] MEDS ORDERED: TETANUS & DIPHTHERIA TOX,ADULT 0.5 ML VIAL ONE (11:48)
[2018-06-03 12:13] VITALS: BP 156/86; TEMP 97.8; O2SAT 97
== END 2018-06-03 12:09 | disposition home or self-care (01) ==
LOC: ER 11:13
DX: S81.812A Laceration without foreign body, left lower leg, initial encounter (principal); W45.8XXA Other foreign body or object entering through skin, initial encounter; Y93.H9 Activity, other involving exterior property and land maintenance, building and construction; Y92.007 Garden or yard of unspecified non-institutional (private) residence as the place of occurrence of the external cause; Z23 Encounter for immunization; Z79.01 Long term (current) use of anticoagulants; Z79.82 Long term (current) use of aspirin; Z95.0 Presence of cardiac pacemaker; J44.9 Chronic obstructive pulmonary disease, unspecified
CPT/HCPCS: 90714; 99284